=== PATIENT | female | born 1995 | race Asian ===

== ENCOUNTER 2016-09-07 19:07 | Emergency (ER) | payer BC, MEDICAID | END 2016-09-07 19:39 | disposition left against medical advice (07) | LOC: E/R 19:07 | DX: Z53.21 Procedure and treatment not carried out due to patient leaving prior to being seen by health care provider (principal) ==

== ENCOUNTER 2016-10-27 08:31 | Inpatient (IN) | payer OTHER ==
[~2016-10-27] VITALS: Ht 167.6 cm; Wt 69.0 kg
[2016-10-27] MEDS ORDERED: KETOROLAC 30 MG INJ IV STA (08:50)
[2016-10-27] MEDS ORDERED: ONDANSETRON 4 MG INJ IV STA (08:50)
[2016-10-27] MEDS ORDERED: SOD CHLORIDE 0.9% 1,000 ML IV STA (08:50)
[2016-10-27] MEDS ORDERED: morphine 4 MG/ML VIAL IV STA (08:50)
[2016-10-27 09:19] LABS: ALBUMIN 4.7 g/dl (3.3-4.9)
[2016-10-27 09:20] LABS: POTASSIUM 4.1 mmol/L (3.5-5.1)
[2016-10-27 09:22] LABS: ALBUMIN/GLOBULIN RATIO 1.56; BASOPHILS % 0.2 % (0.0-2.0); BILIRUBIN,INDIRECT 0.3 mg/dl (0-1.1); BILIRUBIN,TOTAL 0.3 mg/dl (0.2-1.3); CALCIUM 9.7 mg/dl (8.4-10.2); CREATININE 0.64 mg/dl (0.44-1.00); HEMATOCRIT 40.9 % (37.0-47.0); HEMOGLOBIN 14.4 g/dl (12.0-16.0); LYMPHOCYTES # 0.8 10^3/ul (0.8-2.9); LYMPHOCYTES % 7.8 % (15.0-51.0); MEAN CORPUSCULAR HGB CONC 35.1 g/dl (32.0-37.0); MEAN CORPUSCULAR VOLUME 91.3 fl (82.0-101.0); MEAN PLATELET VOLUME 8.3 fl (7.4-10.4); MONOCYTE # 0.2 10^3/ul (0.3-0.9); MONOCYTES % 1.7 % (0.0-11.0); NEUTROPHIL # 9.2 10^3/ul (1.6-7.5); NEUTROPHILS % 90.3 % (39.0-77.0); PLATELET COUNT 242 10^3/UL (140-440); RED BLOOD COUNT 4.48 10^6/ul (4.20-5.40); RED CELL DISTRIBUTION WIDTH 12.2 % (11.5-14.5); TOTAL PROTEIN 7.7 g/dl (6.1-8.1); UNCORRECTED WBC 10.2 10^3/ul (4.8-10.8); WHITE BLOOD COUNT 10.2 10^3/ul (4.8-10.8)
[2016-10-27 09:23] LABS: CONDITION 1; LH ANALYZER COMMENTS 1
--- NOTE | 2016-10-27 09:46 | RADRPT ---
PROCEDURE: US Abdomen. CLINICAL INDICATION: abdominal pain TECHNIQUE: Multiple real-time images were acquired of the patient's right upper quadrant abdomen a nd retroperitoneum utilizing a high resolution transducer. COMPARISON: None FINDINGS: The liver demonstrates normal echogenicity. The liver is normal in size and no focal solid lesions are seen. The liver measures 13.5 cm in length. The portal vein is patent with normal direction of f low. No intrahepatic biliary dilatation is seen. The gallbladder is moderately distended. Multiple calcified gallstones are identified within the ga llbladder. There is no pericholecystic fluid or gallbladder wall thickening. The common bile duct m easures 10 mm in maximal dimension. The visualized portions of the pancreas are unremarkable. The tail of the pancreas is not seen. No free fluid is identified. The right kidney is normal in size, and demonstrate normal echogenicity and cortical thickness. The right kidney measures 9.5 cm in long dimension. There is no evidence of hydronephrosis. There are no kidney stones. RPTAT: AA IMPRESSION: Cholelithiasis. Dilated CBD. .Walter Kulkarni MD, Date Time Electronically viewed and signed by .Walter Kulkarni MD, on 10/27/2016 09:46 .S/
--- NOTE | 2016-10-27 10:17 | RADRPT ---
PROCEDURE: Abdominal study CLINICAL INDICATION: Abdominal Pain. TECHNIQUE: Supine abdomen. COMPARISON: None FINDINGS: The bowel gas pattern is unremarkable with no evidence of obstruction. No abnormal calcifications overlie the kidneys or urinary tracts. There is moderate amount of fecal material in the right colon. IMPRESSION: 1. No acute abdominal process is identified. RPTAT: HH .Ramy Hernandes MD, MD Date Time Electronically viewed and signed by .Ramy Hernandes MD, MD on 10/27/2016 10:16 .G/
[2016-10-27] MEDS ORDERED: ACETAMINOPHEN 325 MG TAB PO PRN (11:00)
[2016-10-27] MEDS ORDERED: AMPICILLIN/SULB 3 GM/NS (PMX) 100 ML IVPB ONE (11:00)
[2016-10-27] MEDS ORDERED: HYDROmorphONE 1 MG/ML SYG IV STA (12:45)
[2016-10-27] MEDS: ONDANSETRON 4 MG INJ IV PRN ×2 (12:55→17:26)
--- NOTE | 2016-10-27 13:06 | ERA ---
ER Documentation Chief Complaint Date/Time DATE: 10/27/16 TIME: 13:05 Chief Complaint abd pain and upper back pain since 0300 today . feels constipated HPI Patient is a 21-year-old female who presents with abdominal pain and vomiting. She has had this for the past few hours. The pain is in the right upper quadrant and epigastric area. She denies diarrhea and her last bowel movement was 2 days ago. She denies fevers. She has had no treatment as of yet. ROS All systems reviewed and are negative except as per history of present illness. Allergies Allergies: Coded Allergies: No Known Allergy (Unverified , 10/27/16) PMhx/Soc Medical and Surgical Hx: pt denies Medical Hx, pt denies Surgical Hx Hx Alcohol Use: No Hx Substance Use: No Hx Tobacco Use: No FmHx Family History: No diabetes Physical Exam Vitals Vital Signs Date Time Temp Pulse Resp B/P Pulse Ox O2 Delivery O2 Flow Rate FiO2 10/27/16 08:35 98.5 71 20 132/72 97 Physical Exam Const: No acute distress Head: Atraumatic Eyes: Normal Conjunctiva ENT: Normal External Ears, Nose and Mouth. Neck: Full range of motion..~ No meningismus. Resp: Clear to auscultation bilaterally Cardio: Regular rate and rhythm, no murmurs Abd: Upper abdominal pain with palpation Skin: No petechiae or rashes Back: No midline or flank tenderness Ext: No cyanosis, or edema Neur: Awake and alert Psych: Normal Mood and Affect Result Diagram: 10/27/16 0900 10/27/16 0900 Results 24 hrs Laboratory Tests Test 10/27/16 09:00 Alanine Aminotransferase (ALT/SGPT) 91IU/L Albumin 4.7g/dl Albumin/Globulin Ratio 1.56 Alkaline Phosphatase 69IU/L Anion Gap 20 Aspartate Amino Transf (AST/SGOT) 106IU/L Basophils # 0.010^3/ul Basophils % 0.2% Blood Urea Nitrogen 6mg/dl Calcium Level 9.7mg/dl Carbon Dioxide Level 24mmol/L Chloride Level 105mmol/L Creatinine 0.64mg/dl Direct Bilirubin 0.00mg/dl Eosinophils # 0.010^3/ul Eosinophils % 0.0% Globulin 3.00g/dl Glucose Level 168mg/dl Hematocrit 40.9% Hemoglobin 14.4g/dl Indirect Bilirubin 0.3mg/dl Lipase 44011L/L Lymphocytes # 0.810^3/ul Lymphocytes % 7.8% Mean Corpuscular Hemoglobin 32.0pg Mean Corpuscular Hemoglobin Concent 35.1g/dl Mean Corpuscular Volume 91.3fl Mean Platelet Volume 8.3fl Monocytes # 0.210^3/ul Monocytes % 1.7% Neutrophils # 9.210^3/ul Neutrophils % 90.3% Nucleated Red Blood Cells # 0.010^3/ul Nucleated Red Blood Cells % 0.0/100WBC Platelet Count 67013^3/UL Potassium Level 4.1mmol/L Red Blood Count 4.4810^6/ul Red Cell Distribution Width 12.2% Sodium Level 145mmol/L Total Bilirubin 0.3mg/dl Total Protein 7.7g/dl White Blood Count 10.210^3/ul Current Medications Medications (Trade) Dose Ordered Sig/Elizabeth Route PRN Reason Start Time Stop Time Status Last Admin Dose Admin Sodium Chloride (NS) 1,000 ml @ 1,000 mls/hr Q1H STAT IV 10/27/16 08:50 10/27/16 09:58 DC 10/27/16 09:08 Morphine Sulfate (morphine) 4 mg ONCE STAT IV 10/27/16 08:50 10/27/16 08:52 DC 10/27/16 09:07 Ondansetron HCl (Zofran Inj) 4 mg ONCE STAT IV 10/27/16 08:50 10/27/16 08:52 DC 10/27/16 09:07 Ketorolac Tromethamine 30 mg 30 mg ONCE STAT IV 10/27/16 08:50 10/27/16 08:52 DC 10/27/16 09:48 Ampicillin Sodium/ Sulbactam Sodium (Unasyn 3gm/NS (Pmx)) 100 ml @ 100 mls/hr ONCE ONCE IVPB 10/27/16 11:00 10/27/16 11:59 DC 10/27/16 11:35 Ondansetron HCl (Zofran Inj) 4 mg BRIDGE ORDER PRN IV NAUSEA AND/OR VOMITING 10/27/16 11:00 10/28/16 10:59 10/27/16 12:55 Acetaminophen (Tylenol Tab) 650 mg ER BRIDGE PRN PO MILD PAIN/FEVER 10/27/16 11:00 10/28/16 10:59 Hydromorphone HCl (Dilaudid) 1 mg ONCE STAT IV 10/27/16 12:45 10/27/16 12:46 DC 10/27/16 12:55 Procedures/MDM Ultrasound shows gallstones with dilated common bile duct per radiology but no signs of cholecystitis. Abdominal x-ray negative per radiology. Patient is a 21-year-old female with abdominal pain who presents with elevated lipase of 17,000 consistent with pancreatitis. I believe this is likely choledocholithiasis given gallstones and a dilated common bile duct with the elevated lipase. AST and ALT were slightly elevated. The patient will be admitted to the care of Dr. Pompa as she has regal insurance. The patient will have consultation with Dr. Stevens and Dr. Barrera. I have called both doctors and I spoke with Dr. Stevens but I am awaiting a callback from Dr. Barrera at this time. The patient will be admitted to a medical surgical bed. The patient will be given Unasyn IV. Observation Note: Time: 4 hours Family Hx: Negative for diabetes Evaluation: Multiple exams showed improving symptoms and no evidence of clinical decompensation. Departure Diagnosis: Primary Impression: Choledocholithiasis Additional Impression: Pancreatitis Qualified Code: K85.10 - Acute biliary pancreatitis, unspecified complication status Condition: LUIS F Pimentel MD Oct 27, 2016 13:06
[2016-10-27 13:59] LABS: INR 1.28; PROTIME 16.1 Sec (12.2-14.2); PT RATIO 1.3
[2016-10-27 14:00] LABS: PARTIAL THROMBOPLASTIN TIME 27.9 Sec (25.0-35.0)
[2016-10-27] MEDS ORDERED: NACL 0.9% 3 ML SYG IV SCH (14:00)
[2016-10-27] MEDS ORDERED: OXYCODONE/ACETAMINOPHEN (5/325) TAB PO PRN ×2 (14:00)
[2016-10-27] MEDS ORDERED: DOCUSATE SODIUM 100 MG CAP PO PRN (14:00)
[2016-10-27] MEDS ORDERED: BISACODYL 10 MG SUPP PR PRN (14:00)
[2016-10-27] MEDS ORDERED: METOCLOPRAMIDE 10 MG INJ IV ONE (14:00)
[2016-10-27 14:01] LABS: CHOL/HDL RATIO 2.7 RATIO
[2016-10-27 14:45] VITALS: TEMP 98.6
--- NOTE | 2016-10-27 15:43 | RADRPT ---
PROCEDURE: MRI abdomen without contrast; MRCP CLINICAL INDICATION: abdominal pain TECHNIQUE: On the coronal T2-weighted images were obtained secondary to patient discomfort and vom iting during the examination which was terminated early. COMPARISON: Gallbladder ultrasound 10/27/2016 FINDINGS: Limited coronal only imaging of the abdomen demonstrates a dilated gallbladder with multiple layerin g gallstones along with dilatation of the cystic duct. There is mild gallbladder wall thickening pr esent with trace adjacent fluid. There is mild intrahepatic biliary ductal dilatation with a modera tely dilated appearance of the common duct that measures up to 13 mm in diameter. Of the distal com mon duct there is a low signal intensity filling defect measuring 4 mm consistent with a stone and t his causes proximal obstructive changes. No pancreatic ductal dilatation is present. There is possible mild peripancreatic fluid signal not fully appreciable on non fat-saturated imagin g. There is a grossly uniform appearance of the hepatic parenchyma and there is a flow void visible wit hin the portal vein. There is a grossly normal appearance the adrenal glands, kidneys and spleen. There is no gross evidence of bowel obstruction. Evaluation for enlarged lymph nodes is limited wit h no gross adenopathy that is visible. The aorta and osseous structures demonstrate no gross acute abnormality. IMPRESSION: There is mild intrahepatic and moderate extrahepatic biliary ductal dilatation secondary to a visibl e obstructing stone at the distal common duct measuring 4 mm consistent with choledocholithiasis. There is cholelithiasis with findings are suggestive for acute cholecystitis. There are possible inflammatory changes around the pancreas which can be correlated with amylase and lipase levels to exclude the presence of pancreatitis. Study is limited as only T2-weighted coronal images were obtained due to patient discomfort an early termination of the study. RPTAT: AA .Obie Medrano MD, MD Date Time Electronically viewed and signed by .Obie Medrano MD, MD on 10/27/2016 15:43 .J/
--- NOTE | 2016-10-27 15:56 | HP ---
DATE OF ADMISSION: 10/27/2016 CHIEF COMPLAINT ON ADMISSION: Abdominal pain. HISTORY OF PRESENT ILLNESS: This is a 21-year-old female with no significant past medical history w haroldo presented to the emergency department with severe epigastric pain radiating to her back that star chitra at 3:00 a.m. today. Patient reports that the pain has been worsening. She did have an episode of nausea and vomiting at 5:00 a.m. this morning and subsequently kept having multiple episodes. Juan Pablo ventura came to the emergency department for evaluation. She was diagnosed with acute pancreatitis with a lipase of 17,540. Her gallbladder ultrasound did show cholelithiasis and dilated common bile duct. Both general surgery and gastroenterology has been consulted, and an MRCP is pending at this point . The patient is n.p.o. and being admitted to a medical/surgical bed. ALLERGIES: NO KNOWN ALLERGIES. PAST MEDICAL HISTORY: None. PAST SURGICAL HISTORY: None. OUTPATIENT MEDICATIONS: Ibuprofen as needed for pain. REVIEW OF SYSTEMS: As per HPI. The patient denies any genitourinary or cardiopulmonary symptoms. Only reports gastrointestinal symptoms. SOCIAL HISTORY: The patient does not drink. She quit all drinking approximately 2 years ago. She only smokes marijuana occasionally. PHYSICAL EXAMINATION: VITAL SIGNS: Temperature is 98.5, heart rate of 71, respiratory rate of 20, blood pressure 132/72. She is satting 97% on room air. GENERAL: She is alert and oriented x4. She is in no acute distress currently. She just had a dose of pain medication. HEENT: Pupils are equally round and reactive to light. Extraocular muscles are intact. Anicteric sclerae. NECK: No JVD. No thyromegaly noted. HEART: Regular rate and rhythm. No murmur, rubs, or gallops. LUNGS: Clear to auscultation bilaterally. ABDOMEN: She does have epigastric pain on palpation. Bowel sounds are present. Abdomen is soft an d nondistended. EXTREMITIES: No edema, clubbing, or cyanosis. NEUROLOGIC: Grossly intact. LABORATORY DATA: White blood cell count is 10.2, hemoglobin 14.4, hematocrit 40.9, platelet count o f 242. Chemistry with a sodium of 145, potassium 4.1, chloride 105, bicarbonate 24, BUN 6, creatini ne 0.64, glucose of 168, calcium 9.7, total bilirubin 0.3, AST 106, ALT 91, alkaline phosphatase 69, total protein 7.7, albumin 4.7, lipase is 17,540. INR is 1.28. PT 16.1, PTT 27.9. RADIOLOGICAL DATA: 1. Gallbladder ultrasound does show cholelithiasis and dilated common bile duct measuring 10 mm. 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 2. Abdominal x-ray is unremarkable. ASSESSMENT AND PLAN: This is a 21-year-old female with: 1. Acute pancreatitis, likely gallstone pancreatitis based on gallbladder ultrasound. MRCP is pend ing. The patient is kept n.p.o. Pain medication, antiemetics on board. IV fluids to be continued. Dr. Dr. Johns from gastroenterology and Dr. Stevens from General Surgery has been consulted. Since there are signs of common bile duct dilatation, the patient will be kept on antibiotics for now unti l MRCP results, and will repeat her pancreatic enzymes tomorrow morning. 2. Prophylaxis. Protonix for GI prophylaxis. SCDs to lower extremity for DVT prophylaxis. DISPOSITION: Patient is admitted to a medical/surgical bed with gastroenterology and general surger y consults pending. Dictated By: ARI FORTUNE/NTS Conf#: [id number] DID#: [id number]
[2016-10-27 16:44] VITALS: BP 106/52; RESP 20
[2016-10-27] MEDS: PIPER-TAZO 3.375 GM IV (PMX) 100 ML IVPB SCH ×2 (16:47→21:15)
[2016-10-27] MEDS: SOD CHLORIDE 0.9% 1,000 ML IV SCH ×2 (16:47→22:00)
[2016-10-27] MEDS: morphine 2 MG INJ IV PRN ×2 (17:26→22:54)
--- NOTE | 2016-10-27 18:10 | CONS ---
Date/Time of Note Date/Time of Note DATE: 10/27/16 TIME: 18:06 Assessment/Plan Assessment/Plan Additional Assessment/Plan Abdominal pain/nausea/vomiting * Evaluate for choledocholithiasis * N.p.o. * IVF hydration * Pain and nausea control * ERCP if clinically indicated * MRCP 10-27-16: There is mild intrahepatic and moderate extrahepatic biliary ductal dilatation secondary to a visible obstructing stone at the distal common duct measuring 4 mm consistent with choledocholithiasis. There is cholelithiasis with findings are suggestive for acute cholecystitis. There are possible inflammatory changes around the pancreas which can be correlated with amylase and lipase levels to exclude the presence of pancreatitis. * Trend labs Further recommendations depend on clinical course Patient seen in collaboration with Dr. Barrera Consultation Date/Type/Reason Admit Date/Time Oct 27, 2016 at 10:42 Reason for Consultation Abdominal pain Per HPI Past Medical History Medical History: no pertinent history Past Surgical History Past Surgical Hx: no surgical history Social History Alcohol Use: occasionally Smoking Status: Never smoker Exam/Review of Systems Vital Signs Vitals Vital Signs Date Time Temp Pulse Resp B/P Pulse Ox O2 Delivery O2 Flow Rate FiO2 10/27/16 16:44 97.7 57 20 106/52 98 Exam Constitutional: alert, oriented, well developed Psych: nl mood/affect Head: normocephalic Eyes: EOMI, nl conjunctiva, nl lids, nl sclera ENMT: nl external ears & nose, nl lips & teeth, nl nasal mucosa & septum Neck: non-tender Respiratory: normal air movement Cardiovascular: regular rate and rhythm Gastrointestinal: soft, tender (Epigastric) Musculoskeletal: nl extremities to inspection Neurological: CTC OPERATOR II-XII intact Results Result Diagram: 10/27/16 0900 10/27/16 0900 Results 24 hrs Laboratory Tests Test 10/27/16 09:00 Activated Partial Thromboplast Time 27.9 Alanine Aminotransferase (ALT/SGPT) 91 H Albumin 4.7 Albumin/Globulin Ratio 1.56 Alkaline Phosphatase 69 Anion Gap 20 H Aspartate Amino Transf (AST/SGOT) 106 H Basophils # 0.0 Basophils % 0.2 Blood Urea Nitrogen 6 L Calcium Level 9.7 Carbon Dioxide Level 24 Chloride Level 105 Cholesterol Level 144 Cholesterol/HDL Ratio 2.7 Creatinine 0.64 Direct Bilirubin 0.00 Eosinophils # 0.0 Eosinophils % 0.0 Globulin 3.00 Glucose Level 168 HDL Cholesterol 53 Hematocrit 40.9 Hemoglobin 14.4 INR International Normalized Ratio 1.28 Indirect Bilirubin 0.3 LDL Cholesterol, Calculated 81 Lipase 53087 H Lymphocytes # 0.8 Lymphocytes % 7.8 L Mean Corpuscular Hemoglobin 32.0 Mean Corpuscular Hemoglobin Concent 35.1 Mean Corpuscular Volume 91.3 Mean Platelet Volume 8.3 Monocytes # 0.2 L Monocytes % 1.7 Neutrophils # 9.2 H Neutrophils % 90.3 H Nucleated Red Blood Cells # 0.0 Nucleated Red Blood Cells % 0.0 Platelet Count 242 Potassium Level 4.1 Prothrombin Time 16.1 H Prothrombin Time Ratio 1.3 Red Blood Count 4.48 Red Cell Distribution Width 12.2 Sodium Level 145 H Total Bilirubin 0.3 Total Protein 7.7 Triglycerides Level 51 White Blood Count 10.2 Medications Medications Current Medications Ondansetron HCl (Zofran Inj) 4 mg Q6H PRN IV NAUSEA AND/OR VOMITING Last administered on 10/27/16 17:26; Admin Dose 4 MG; Start 10/27/16 at 14:00 Oxycodone/ Acetaminophen (Percocet (5/ 325)) 1 tab Q6H PRN PO PAIN LEVEL 4-6; Start 10/27/16 at 14:00 Oxycodone/ Acetaminophen (Percocet (5/ 325)) 2 tab Q6H PRN PO PAIN LEVEL 7-10; Start 10/27/16 at 14:00 Morphine Sulfate (morphine) 2 mg Q4H PRN IV PAIN LEVEL 7-10 Last administered on 10/27/16 17:26; Admin Dose 2 MG; Start 10/27/16 at 14:00 Docusate Sodium (Colace) 100 mg Q12H PRN PO CONSTIPATION; Start 10/27/16 at 14: 00 Magnesium Hydroxide (Milk Of Mag) 30 ml DAILY PRN PO CONSTIPATION; Start at 14:00 Bisacodyl (Dulcolax Supp) 10 mg DAILY PRN LA CONSTIPATION; Start 10/27/16 at 14 :00 Pantoprazole 40 mg 40 mg DAILY@06 IV ; Start 10/28/16 at 06:00 Sodium Chloride 1,000 ml @ 125 mls/hr Q8H IV Last administered on 10/27/16 16 :47; Admin Dose 125 MLS/HR; Start 10/27/16 at 14:00 Piperacillin Sod/ Tazobactam Sod (Zosyn 3.375gm/ 100 ml (Pmx)) 100 ml @ 200 mls /hr Q8 IVPB Last administered on 10/27/16t 16:47; Admin Dose 200 MLS/HR; Start 10/27/16 at 14:00 JUN BEAVER Oct 27, 2016 18:10
[2016-10-27 19:00] VITALS: BP 109/55; RESP 19
[2016-10-27 19:24] LABS: ADD UMIC YES; URINE BILIRUBIN (Dip) 1+ (NEGATIVE); URINE BLOOD (Dip) NEGATIVE (NEGATIVE); URINE COLOR YELLOW (YELLOW); URINE GLUCOSE (Dip) NEGATIVE (NEGATIVE); URINE KETONES (Dip) 15 (NEGATIVE); URINE LEUKOCYTE ESTERASE (Dip) NEGATIVE (NEGATIVE); URINE NITRITE (Dip) NEGATIVE (NEGATIVE); URINE TOTAL PROTEIN (Dip) 1+ (NEGATIVE); URINE UROBILINOGEN (Dip) 0.2 E.U./dL (0.1-1.0)
--- NOTE | 2016-10-27 19:25 | CONS ---
DATE OF ADMISSION: 10/27/2016 DATE OF CONSULTATION: TYPE OF CONSULTATION: Surgical. REASON FOR CONSULTATION: Cholecystitis and choledocholithiasis. HISTORY OF PRESENT ILLNESS: The patient is a 21-year-old female who has no familial history of gall bladder disease or previous pregnancies. She did not know that she has gallstones until this admiss ion. She was admitted with a 1-day history of severe midepigastric and right upper quadrant abdomin al pain. Abdominal ultrasound showed gallstones. MRI showed gallstones as well as a solitary stone in the distal common duct. She is admitted with diagnosis of acute cholecystitis and choledocholit hiasis, and surgical and GI consultations have been sought. She has had no fevers, chills or jaundi ce. PAST MEDICAL HISTORY: No previous hospitalizations or illnesses. OUTPATIENT MEDICATIONS: None. ALLERGIES: NONE. REVIEW OF SYSTEMS: HEAD, EARS, EYES, NOSE, THROAT: Within normal limits. PULMONARY: No history of pneumonia, asthma or shortness of breath. CARDIAC: No history of chest pain or arrhythmia. ABDOMEN: As in the HPI. EXTREMITIES: Unremarkable. PHYSICAL EXAMINATION: GENERAL: The patient is a healthy and fit-appearing 21-year-old female in no acute distress. HEAD, EARS, EYES, NOSE AND THROAT: Within normal limits. Sclerae nonicteric. LUNGS: Clear. HEART: Regular rhythm. ABDOMEN: Tender in the right upper quadrant with slight guarding but no rebound. EXTREMITIES: Unremarkable. LABORATORY DATA: The patient's hematocrit is 40.9 with a white count of 10,000. BUN, glucose, elec trolytes are unremarkable. Bilirubin is 0.3 with an alkaline phosphatase of 69. AST is 106, ALT 91 , lipase is 17,540. IMPRESSION: 1. Biliary pancreatitis. 2. Cholecystitis. 3. Choledocholithiasis. PLAN: Medical management, GI consultation for ERCP, laparoscopic cholecystectomy when common duct i s cleared and pancreatitis resolves. I will follow with you. Dictated By: HORACIO SAUCEDO/BECCA Conf#: [id number] DID#: [id number]
[2016-10-27 19:30] LABS: ICTOTEST NEGATIVE (NEGATIVE)
[2016-10-27 19:54] LABS: BACTERIA,URINE FEW; URINE RBCS 0-2 /HPF (0)
[2016-10-28] MEDS: SOD CHLORIDE 0.9% 1,000 ML IV SCH ×2 (02:11→16:06)
[2016-10-28] MEDS: ONDANSETRON 4 MG INJ IV PRN (02:11)
[2016-10-28] MEDS: PANTOPRAZOLE 40 MG INJ IV SCH (05:10)
[2016-10-28] MEDS: PIPER-TAZO 3.375 GM IV (PMX) 100 ML IVPB SCH ×3 (05:10→21:35)
[2016-10-28] MEDS: morphine 2 MG INJ IV PRN ×4 (05:11→23:12)
[2016-10-28 05:33] VITALS: Ht 167.6 cm; Wt 69.0 kg
[2016-10-28 05:43] LABS: ALBUMIN 3.4 g/dl (3.3-4.9)
[2016-10-28 05:44] LABS: POTASSIUM 3.7 mmol/L (3.5-5.1)
[2016-10-28 05:45] LABS: BASOPHILS % 0.3 % (0.0-2.0); EOSINOPHILS % 0.3 % (0.0-7.0); HEMATOCRIT 33.3 % (37.0-47.0); HEMOGLOBIN 11.5 g/dl (12.0-16.0); LYMPHOCYTES # 1.7 10^3/ul (0.8-2.9); LYMPHOCYTES % 22.4 % (15.0-51.0); MEAN CORPUSCULAR HEMOGLOBIN 31.3 pg (29.0-33.0); MEAN CORPUSCULAR HGB CONC 34.4 g/dl (32.0-37.0); MEAN CORPUSCULAR VOLUME 90.9 fl (82.0-101.0); MEAN PLATELET VOLUME 8.7 fl (7.4-10.4); MONOCYTE # 0.4 10^3/ul (0.3-0.9); MONOCYTES % 5.7 % (0.0-11.0); NEUTROPHIL # 5.5 10^3/ul (1.6-7.5); NEUTROPHILS % 71.3 % (39.0-77.0); PLATELET COUNT 192 10^3/UL (140-440); RED BLOOD COUNT 3.66 10^6/ul (4.20-5.40); UNCORRECTED WBC 7.7 10^3/ul (4.8-10.8); WHITE BLOOD COUNT 7.7 10^3/ul (4.8-10.8)
[2016-10-28 05:46] LABS: ALBUMIN/GLOBULIN RATIO 1.36; BILIRUBIN,INDIRECT 0.3 mg/dl (0-1.1); BILIRUBIN,TOTAL 0.3 mg/dl (0.2-1.3); CREATININE 0.65 mg/dl (0.44-1.00); TOTAL PROTEIN 5.9 g/dl (6.1-8.1)
[2016-10-28 05:47] LABS: CALCIUM 8.6 mg/dl (8.4-10.2)
[2016-10-28 06:31] LABS: CONDITION 1
[2016-10-28] MEDS ORDERED: VITAMIN A & D 5 GM OINT PACKET TOP ONE (07:40)
[2016-10-28 08:39] VITALS: BP 107/63; RESP 18
--- NOTE | 2016-10-28 10:36 | PN ---
DATE: 10/28/2016 SUBJECTIVE: The patient is symptomatically improved. Her white blood cell count is normal. OBJECTIVE: ABDOMEN: Shows mild tenderness in the epigastrium. LABORATORY DATA: Lipase today is down to 1356. PLAN: Timing of the ERCP per GI, completion laparoscopic cholecystectomy after common duct is clear ed and pancreatitis resolved. Dictated By: HORACIO SAUCEDO/BECCA Conf#: [id number] DID#: [id number]
--- NOTE | 2016-10-28 10:42 | PN ---
Date/Time of Note Date/Time of Note DATE: 10/28/16 TIME: 10:36 Assessment/Plan VTE Prophylaxis VTE Prophylaxis Intervention: SCD's Lines/Catheters IV Catheter Type (from Nrs): Peripheral IV Assessment/Plan Assessment/Plan 21-year-old female: 1. Acute Gallstone pancreatitis, also with choledocholithiasis and acute cholecystitis. Pancreatic enzymes trending down. Continue IVF, IV abx and NPO ERCP planned for AM Cholecystectomy to follow Monitor Pancreatic enzymes Prophylaxis. Protonix for GI prophylaxis. SCDs to lower extremity for DVT prophylaxis. DISPOSITION: ERCP in AM, Dr Barrera and Dr Stevens following. Subjective 24 Hr Interval Summary Free Text/Dictation Patient doing OK, on IVF, NPO and pain controlled MRCP confirming choledocholithiasis and acute cholecystis in addition of acute pancreatitis ERCP planned for tomorrow with dr Barrera and cholecystectomy to follow Exam/Review of Systems Vital Signs Vitals Vital Signs Date Time Temp Pulse Resp B/P Pulse Ox O2 Delivery O2 Flow Rate FiO2 10/28/16 08:39 98.0 60 18 107/63 99 Intake and Output 10/27/16 10/27/16 10/28/16 15:00 23:00 07:00 Intake Total 1000 ml 100 ml 1500 ml Output Total 1050 ml Balance 1000 ml 100 ml 450 ml Exam Constitutional: alert, oriented, well developed Respiratory: clear to auscultation, normal air movement Cardiovascular: nl pulses, regular rate and rhythm Gastrointestinal: soft, tender (epigastric ) Musculoskeletal: nl extremities to inspection, nl gait and stance Extremities: normal pulses, other (no edema, clubbign or cyanosis ) Neurological: CHIPPER MACHINE OPERATOR II-XII intact, nl mental status, nl speech, nl strength Results Result Diagram: 10/28/1644910/28/16 045 Results 24 hrs Laboratory Tests Test 10/27/16 18:30 10/28/16 04:50 10/28/16 09:21 Lipase 9129 H 1356 H Alanine Aminotransferase (ALT/SGPT) 204 H Albumin 3.4 # Albumin/Globulin Ratio 1.36 Alkaline Phosphatase 62 Amylase Level 462 H Anion Gap 16 Aspartate Amino Transf (AST/SGOT) 130 H Basophils # 0.0 Basophils % 0.3 Blood Urea Nitrogen 7 Calcium Level 8.6 Carbon Dioxide Level 23 Chloride Level 107 Creatinine 0.65 Direct Bilirubin 0.00 Eosinophils # 0.0 Eosinophils % 0.3 Globulin 2.50 Glucose Level 96 # Hematocrit 33.3 L Hemoglobin 11.5 #L Indirect Bilirubin 0.3 Lymphocytes # 1.7 Lymphocytes % 22.4 Magnesium Level 2.0 Mean Corpuscular Hemoglobin 31.3 Mean Corpuscular Hemoglobin Concent 34.4 Mean Corpuscular Volume 90.9 Mean Platelet Volume 8.7 Monocytes # 0.4 Monocytes % 5.7 Neutrophils # 5.5 Neutrophils % 71.3 Nucleated Red Blood Cells # 0.0 Nucleated Red Blood Cells % 0.0 Platelet Count 192 # Potassium Level 3.7 Red Blood Count 3.66 L Red Cell Distribution Width 12.0 Sodium Level 142 Total Bilirubin 0.3 Total Protein 5.9 #L White Blood Count 7.7 # Lab Scanned Report LAB Medications Medications Current Medications Ondansetron HCl (Zofran Inj) 4 mg Q6H PRN IV NAUSEA AND/OR VOMITING Last administered on 10/27/16 17:26; Admin Dose 4 MG; Start 10/27/16 at 14:00 Oxycodone/ Acetaminophen (Percocet (5/ 325)) 1 tab Q6H PRN PO PAIN LEVEL 4-6; Start 10/27/16 at 14:00 Oxycodone/ Acetaminophen (Percocet (5/ 325)) 2 tab Q6H PRN PO PAIN LEVEL 7-10 Last administered on 10/27/16 19:42; Admin Dose 2 TAB; Start 10/27/16 at 14:00 Morphine Sulfate (morphine) 2 mg Q4H PRN IV PAIN LEVEL 7-10 Last administered on 10/28/16 05:11; Admin Dose 2 MG; Start 10/27/16 at 14:00 Docusate Sodium (Colace) 100 mg Q12H PRN PO CONSTIPATION; Start 10/27/16 at 14: 00 Magnesium Hydroxide (Milk Of Mag) 30 ml DAILY PRN PO CONSTIPATION; Start at 14:00 Bisacodyl (Dulcolax Supp) 10 mg DAILY PRN LA CONSTIPATION; Start 10/27/16 at 14 :00 Pantoprazole 40 mg 40 mg DAILY@06 IV Last administered on 10/28/16 05:10; Admin Dose 40 MG; Start 10/28/16 at 06:00 Sodium Chloride 1,000 ml @ 125 mls/hr Q8H IV Last administered on 10/28/16 02 :11; Admin Dose 125 MLS/HR; Start 10/27/16 at 14:00 Piperacillin Sod/ Tazobactam Sod (Zosyn 3.375gm/ 100 ml (Pmx)) 100 ml @ 200 mls /hr Q8 IVPB Last administered on 10/28/16 05:10; Admin Dose 200 MLS/HR; Start 10/27/16 at 14:00 ARI RAYO Oct 28, 2016 10:42
--- NOTE | 2016-10-28 14:34 | CONS ---
Date/Time of Note Date/Time of Note DATE: 10/28/16 TIME: 14:29 Assessment/Plan Assessment/Plan Additional Assessment/Plan Abdominal pain/nausea/vomiting * Evaluate for choledocholithiasis * N.p.o. * IVF hydration * Pain and nausea control * ERCP tomorrow with Dr. Barrera * MRCP 10-27-16: There is mild intrahepatic and moderate extrahepatic biliary ductal dilatation secondary to a visible obstructing stone at the distal common duct measuring 4 mm consistent with choledocholithiasis. There is cholelithiasis with findings are suggestive for acute cholecystitis. There are possible inflammatory changes around the pancreas which can be correlated with amylase and lipase levels to exclude the presence of pancreatitis. * Trend labs Further recommendations depend on clinical course Patient seen in collaboration with Dr. Barrera Consultation Date/Type/Reason Admit Date/Time Oct 27, 2016 at 10:42 Initial Consult Date Type of Consultation: GI Reason for Consultation Abdominal pain 24 HR Interval Summary Free Text/Dictation Reports less abdominal pain ERCP planned for tomorrow Exam/Review of Systems Vital Signs Vitals Vital Signs Date Time Temp Pulse Resp B/P Pulse Ox O2 Delivery O2 Flow Rate FiO2 10/28/16 08:39 98.0 60 18 107/63 99 Intake and Output 10/27/16 10/27/16 10/28/16 15:00 23:00 07:00 Intake Total 1000 ml 100 ml 1500 ml Output Total 1050 ml Balance 1000 ml 100 ml 450 ml Exam Constitutional: alert, oriented, well developed Psych: nl mood/affect Head: normocephalic Eyes: EOMI, nl conjunctiva, nl lids, nl sclera ENMT: nl external ears & nose, nl lips & teeth, nl nasal mucosa & septum Neck: non-tender Respiratory: normal air movement Cardiovascular: regular rate and rhythm Gastrointestinal: soft, tender (Epigastric) Musculoskeletal: nl extremities to inspection Neurological: GRADE TAMPER II-XII intact Results Result Diagram: 10/28/16 04510/28/16 045 Results 24 hrs Laboratory Tests Test 10/27/16 18:30 10/28/16 04:50 10/28/16 09:21 Lipase 9129 H 1356 H Alanine Aminotransferase (ALT/SGPT) 204 H Albumin 3.4 # Albumin/Globulin Ratio 1.36 Alkaline Phosphatase 62 Amylase Level 462 H Anion Gap 16 Aspartate Amino Transf (AST/SGOT) 130 H Basophils # 0.0 Basophils % 0.3 Blood Urea Nitrogen 7 Calcium Level 8.6 Carbon Dioxide Level 23 Chloride Level 107 Creatinine 0.65 Direct Bilirubin 0.00 Eosinophils # 0.0 Eosinophils % 0.3 Globulin 2.50 Glucose Level 96 # Hematocrit 33.3 L Hemoglobin 11.5 #L Indirect Bilirubin 0.3 Lymphocytes # 1.7 Lymphocytes % 22.4 Magnesium Level 2.0 Mean Corpuscular Hemoglobin 31.3 Mean Corpuscular Hemoglobin Concent 34.4 Mean Corpuscular Volume 90.9 Mean Platelet Volume 8.7 Monocytes # 0.4 Monocytes % 5.7 Neutrophils # 5.5 Neutrophils % 71.3 Nucleated Red Blood Cells # 0.0 Nucleated Red Blood Cells % 0.0 Platelet Count 192 # Potassium Level 3.7 Red Blood Count 3.66 L Red Cell Distribution Width 12.0 Sodium Level 142 Total Bilirubin 0.3 Total Protein 5.9 #L White Blood Count 7.7 # Lab Scanned Report LAB Medications Medications Current Medications Ondansetron HCl (Zofran Inj) 4 mg Q6H PRN IV NAUSEA AND/OR VOMITING Last administered on 10/27/16 17:26; Admin Dose 4 MG; Start 10/27/16 at 14:00 Oxycodone/ Acetaminophen (Percocet (5/ 325)) 1 tab Q6H PRN PO PAIN LEVEL 4-6; Start 10/27/16 at 14:00 Oxycodone/ Acetaminophen (Percocet (5/ 325)) 2 tab Q6H PRN PO PAIN LEVEL 7-10 Last administered on 10/27/16 19:42; Admin Dose 2 TAB; Start 10/27/16 at 14:00 Morphine Sulfate (morphine) 2 mg Q4H PRN IV PAIN LEVEL 7-10 Last administered on 10/28/16 10:39; Admin Dose 2 MG; Start 10/27/16 at 14:00 Docusate Sodium (Colace) 100 mg Q12H PRN PO CONSTIPATION; Start 10/27/16 at 14: 00 Magnesium Hydroxide (Milk Of Mag) 30 ml DAILY PRN PO CONSTIPATION; Start at 14:00 Bisacodyl (Dulcolax Supp) 10 mg DAILY PRN [place] CONSTIPATION; Start 10/27/16 at 14 :00 Pantoprazole 40 mg 40 mg DAILY@06 IV Last administered on 10/28/16 05:10; Admin Dose 40 MG; Start 10/28/16 at 06:00 Sodium Chloride 1,000 ml @ 125 mls/hr Q8H IV Last administered on 10/28/16 02 :11; Admin Dose 125 MLS/HR; Start 10/27/16 at 14:00 Piperacillin Sod/ Tazobactam Sod (Zosyn 3.375gm/ 100 ml (Pmx)) 100 ml @ 200 mls /hr Q8 IVPB Last administered on 10/28/16 13:58; Admin Dose 200 MLS/HR; Start 10/27/16 at 14:00 Indomethacin (Indocin Supp) 100 mg ONCE ONCE SD ; Start 10/29/16 at 12:00; Stop 10/29/16 at 12:01 JUN BEAVER Oct 28, 2016 14:34
[2016-10-28 19:00] VITALS: BP 109/64; RESP 18
[2016-10-29] VITALS (12 sets, daily range): BP systolic 100–132; BP diastolic 56–76; PULSE 56–90; RESP 12–22
[2016-10-29] MEDS: SOD CHLORIDE 0.9% 1,000 ML IV SCH ×4 (00:11→22:24)
[2016-10-29] MEDS: PANTOPRAZOLE 40 MG INJ IV SCH (05:14)
[2016-10-29] MEDS: PIPER-TAZO 3.375 GM IV (PMX) 100 ML IVPB SCH ×3 (05:14→22:24)
[2016-10-29 06:03] LABS: ADD SCAN DIFF NO
[2016-10-29 06:06] LABS: MAGNESIUM 1.9 mg/dl (1.7-2.5); PHOSPHORUS 3.8 mg/dl (2.5-4.9)
[2016-10-29 06:16] LABS: ALBUMIN 3.1 g/dl (3.3-4.9)
[2016-10-29 06:19] LABS: ALBUMIN/GLOBULIN RATIO 1.4; BILIRUBIN,INDIRECT 0.2 mg/dl (0-1.1); BILIRUBIN,TOTAL 0.2 mg/dl (0.2-1.3); CALCIUM 8.5 mg/dl (8.4-10.2); CREATININE 0.63 mg/dl (0.44-1.00); TOTAL PROTEIN 5.3 g/dl (6.1-8.1)
[2016-10-29 06:42] LABS: AMYLASE 100 U/L (11-123)
[2016-10-29 06:52] LABS: BASOPHILS % 0.2 % (0.0-2.0); EOSINOPHILS # 0.1 10^3/ul (0.0-0.5); HEMATOCRIT 32.3 % (37.0-47.0); LYMPHOCYTES # 2.5 10^3/ul (0.8-2.9); LYMPHOCYTES % 49.5 % (15.0-51.0); MEAN CORPUSCULAR HEMOGLOBIN 31.6 pg (29.0-33.0); MEAN CORPUSCULAR HGB CONC 34.1 g/dl (32.0-37.0); MEAN CORPUSCULAR VOLUME 92.8 fl (82.0-101.0); MEAN PLATELET VOLUME 10.8 fl (7.4-10.4); MONOCYTE # 0.4 10^3/ul (0.3-0.9); NEUTROPHIL # 2.2 10^3/ul (1.6-7.5); NEUTROPHILS % 42.1 % (39.0-77.0); PLATELET COUNT 181 10^3/UL (140-415); RED BLOOD COUNT 3.48 10^6/ul (4.20-5.40); RED CELL DISTRIBUTION WIDTH 11.8 % (11.5-14.5); WHITE BLOOD COUNT 5.1 10^3/ul (4.8-10.8)
[2016-10-29] MEDS ORDERED: LIDOCAINE 2% (SDV) 5 ML INJ ONE (07:00)
[2016-10-29] MEDS: morphine 2 MG INJ IV PRN (08:56)
--- NOTE | 2016-10-29 11:31 | PN ---
Date/Time of Note Date/Time of Note DATE: 10/29/16 TIME: 11:25 Assessment/Plan VTE Prophylaxis VTE Prophylaxis Intervention: SCD's Lines/Catheters IV Catheter Type (from Nrsg): Peripheral IV Assessment/Plan Assessment/Plan 21-year-old female: 1. Acute Gallstone pancreatitis, also with choledocholithiasis and acute cholecystitis. Pancreatic enzymes back down to normal. Continue IVF, IV abx and NPO, ERCP today Cholecystectomy to follow Pre op EKG and CXR ordered Prophylaxis. Protonix for GI prophylaxis. SCDs to lower extremity for DVT prophylaxis. DISPOSITION: ERCP today, Dr Barrera and Dr Stevens following. Subjective 24 Hr Interval Summary Free Text/Dictation Patient remains stable and NPO ERCP planned today Per Patient family, they is a history of at least 2 family members, unclear if distant or close that had reaction to anesthesia .. EKG pending pre op Exam/Review of Systems Vital Signs Vitals Vital Signs Date Time Temp Pulse Resp B/P Pulse Ox O2 Delivery O2 Flow Rate FiO2 10/29/16 08:16 98.0 71 16 105/56 98 Intake and Output 10/28/16 10/28/16 10/29/16 15:00 23:00 07:00 Intake Total 100 ml 1350 ml 725 ml Balance 100 ml 1350 ml 725 ml Exam Constitutional: alert, oriented, well developed Respiratory: clear to auscultation, normal air movement Cardiovascular: nl pulses, regular rate and rhythm Gastrointestinal: non-tender, soft Musculoskeletal: nl extremities to inspection Extremities: normal pulses, other (no edema, clubbing or cyanosis ) Neurological: BUTTERMAKER HELPER II-XII intact, nl mental status, nl speech, nl strength Results Result Diagram: 10/29/160 10/29/160 Results 24 hrs Laboratory Tests Test 10/29/16 04:40 Alanine Aminotransferase (ALT/SGPT) 131 H Albumin 3.1 L Albumin/Globulin Ratio 1.40 Alkaline Phosphatase 52 Amylase Level 100 # Anion Gap 14 Aspartate Amino Transf (AST/SGOT) 41 Basophils # 0.0 Basophils % 0.2 Blood Urea Nitrogen 5 L Calcium Level 8.5 Carbon Dioxide Level 24 Chloride Level 109 Creatinine 0.63 Direct Bilirubin 0.00 Eosinophils # 0.1 Eosinophils % 1.0 Globulin 2.20 Glucose Level 79 Hematocrit 32.3 L Hemoglobin 11.0 L Indirect Bilirubin 0.2 Lipase 201 Lymphocytes # 2.5 Lymphocytes % 49.5 Magnesium Level 1.9 Mean Corpuscular Hemoglobin 31.6 Mean Corpuscular Hemoglobin Concent 34.1 Mean Corpuscular Volume 92.8 Mean Platelet Volume 10.8 #H Monocytes # 0.4 Monocytes % 7.0 Neutrophils # 2.2 Neutrophils % 42.1 Nucleated Red Blood Cells # 0.0 Nucleated Red Blood Cells % 0.0 Phosphorus Level 3.8 Platelet Count 181 Potassium Level 4.0 Red Blood Count 3.48 L Red Cell Distribution Width 11.8 Sodium Level 143 Total Bilirubin 0.2 Total Protein 5.3 L White Blood Count 5.1 # Medications Medications Current Medications Ondansetron HCl (Zofran Inj) 4 mg Q6H PRN IV NAUSEA AND/OR VOMITING Last administered on 10/27/16 17:26; Admin Dose 4 MG; Start 10/27/16 at 14:00 Oxycodone/ Acetaminophen (Percocet (5/ 325)) 1 tab Q6H PRN PO PAIN LEVEL 4-6; Start 10/27/16 at 14:00 Oxycodone/ Acetaminophen (Percocet (5/ 325)) 2 tab Q6H PRN PO PAIN LEVEL 7-10 Last administered on 10/27/16 19:42; Admin Dose 2 TAB; Start 10/27/16 at 14:00 Morphine Sulfate (morphine) 2 mg Q4H PRN IV PAIN LEVEL 7-10 Last administered on 10/29/16 08:56; Admin Dose 2 MG; Start 10/27/16 at 14:00 Docusate Sodium (Colace) 100 mg Q12H PRN PO CONSTIPATION; Start 10/27/16 at 14: 00 Magnesium Hydroxide (Milk Of Mag) 30 ml DAILY PRN PO CONSTIPATION; Start at 14:00 Bisacodyl (Dulcolax Supp) 10 mg DAILY PRN [place] CONSTIPATION; Start 10/27/16 at 14 :00 Pantoprazole 40 mg 40 mg DAILY@06 IV Last administered on 10/29/16 05:14; Admin Dose 40 MG; Start 10/28/16 at 06:00 Sodium Chloride 1,000 ml @ 125 mls/hr Q8H IV Last administered on 10/29/16 08 :56; Admin Dose 125 MLS/HR; Start 10/27/16 at 14:00 Piperacillin Sod/ Tazobactam Sod (Zosyn 3.375gm/ 100 ml (Pmx)) 100 ml @ 200 mls /hr Q8 IVPB Last administered on 10/29/16t 05:14; Admin Dose 200 MLS/HR; Start 10/27/16 at 14:00 Indomethacin (Indocin Supp) 100 mg ONCE ONCE ND ; Start 10/29/16 at 12:00; Stop 10/29/16 at 12:01 ARI RAYO Oct 29, 2016 11:31
[2016-10-29] MEDS ORDERED: INDOMETHACIN 50 MG SUPP PR ONE (12:00)
[2016-10-29 12:35] LABS: INR 1.25; PROTIME 15.8 Sec (12.2-14.2); PT RATIO 1.2
[2016-10-29 12:36] LABS: PARTIAL THROMBOPLASTIN TIME 30.2 Sec (25.0-35.0)
--- NOTE | 2016-10-29 12:41 | RADRPT ---
PROCEDURE: XR Chest. CLINICAL INDICATION: Preoperative for ERCP. TECHNIQUE: Single frontal view. COMPARISON: None. FINDINGS: The lungs are clear. The heart size is normal. There is no pleural effusion. There is no pneumothorax. IMPRESSION: 1. Normal chest radiograph. RPTAT: QQ .Remy Falk MD, Date Time Electronically viewed and signed by .Remy Falk MD, on 10/29/2016 12:41 .R/
--- NOTE | 2016-10-29 16:00 | PN ---
DATE: 10/29/2016 SURGICAL FOLLOWUP SUBJECTIVE: The patient is markedly symptomatically improved. Her abdominal examination is benign. Her lipase has come down to 201. PLAN: ERCP today. Completion laparoscopic cholecystectomy tomorrow morning. I have discussed the procedure, outcomes, expectations, alternatives and risks in detail with the patient who has an exce llent understanding of the nature of her problem and agrees to the proposed plan of therapy as rejii madie. Dictated By: HORACIO SAUCEDO/BECCA Conf#: [id number] DID#: [id number]
[2016-10-29] MEDS ORDERED: IOHEXOL 300MG/ML 30 ML BTL ONE (16:42)
[2016-10-29] MEDS ORDERED: NEOSTIGMINE 3 MG/3 ML SYRINGE ONE (17:50)
[2016-10-29] MEDS ORDERED: SUCCINYLCHOLINE CHLORIDE 100 MG/5 ML SYG IV ONE (17:50)
[2016-10-29] MEDS ORDERED: ROCURONIUM 50 MG INJ ONE (17:50)
[2016-10-29] MEDS ORDERED: PROPOFOL 40 ML ONE (17:50)
[2016-10-29] MEDS ORDERED: GLYCOPYRROLATE 0.4 MG INJ ONE (17:50)
[2016-10-29] MEDS ORDERED: MEPERIDINE 25 MG INJ IV PRN (18:00)
[2016-10-29] MEDS ORDERED: ONDANSETRON 4 MG INJ IV PRN (18:00)
[2016-10-29] MEDS ORDERED: FENTAnyl 50 MCG/ML VIAL IV PRN (18:00)
[2016-10-29] MEDS ORDERED: HYDROmorphONE (0.2 MG/ML) 10ML SYG IV PRN ×3 (18:00)
[2016-10-29] MEDS ORDERED: DIPHENHYDRAMINE 50 MG INJ IV PRN (18:00)
--- NOTE | 2016-10-29 18:23 | RADRPT ---
PROCEDURE: Intraoperative imaging for ERCP with fluoroscopy. CLINICAL INDICATION: Right upper quadrant pain. Intraoperative. TECHNIQUE: 6 images of the right upper quadrant of the abdomen were obtained in the operating room with an image intensifier. No radiologist was in attendance. 45.4 seconds of fluoroscopy time was used. COMPARISON: MRCP dated 10/27/2016. FINDINGS: Images demonstrate the endoscope in position and contrast injected into the common bile duct. The c ommon bile duct is not dilated. The cystic duct is patent. A balloon sweep was made. The pancreat ic duct was not injected. IMPRESSION: 1. ERCP as described above. RPTAT: QQ .Remy Falk MD, MD Date Time Electronically viewed and signed by .Remy Falk MD, MD on 10/29/2016 18:22 .R/
--- NOTE | 2016-10-29 18:53 | GILP ---
DATE OF PROCEDURE: 10/29/2016 DATE: 10/29/2015 NAME OF PROCEDURE: Endoscopic retrograde cholangiopancreatography with sphincterotomy and stone rem oval. SURGEON: Twila Barrera MD. PREMEDICATION: General anesthesia by anesthesiologist. INSTRUMENT USED: Olympus side viewing panendoscope. TECHNIQUE: After informed consent, with the patient/relatives understanding the procedure, its indic ations, potential risks, and complications, including but not limited to: allergic reaction, bleedin g, perforation or infection, and after all pertinent questions were answered to the patient's satisf action, the patient/relatives signed witnessed informed consent. Following this, premedication was administered slowly IV push under careful cardiovascular and respi ratory monitoring with pulse oximetry, automatic blood pressure and threat monitoring analyst. Once the sedative effect was achieved, the patient was place in the prone position in the radiology special procedures suite; the side viewing panendoscope was introduced and advanced under visual con trol. Careful examination of the upper gastrointestinal tract, both on insertion as well as withdrawal of the instrument disclosed the following findings: ESOPHAGUS: The mucosa of the entire esophagus appears within normal limits. There is no evidence o f esophagitis, varices, neoplasm, or stricture. No Hiatal Hernia identified. STOMACH: Upon entrance to the stomach, air was insufflated, the gastric martines distended normally. The mucosa of the fundus, body, and antrum of the stomach was carefully examined both head-on and on retroflexion, and shows no abnormalities. There is no evidence of gastritis, ulcers, or neoplasm. PYLORUS: The pylorus appears patent and within normal limits, with no evidence of gastric outlet ob struction. DUODENUM: The duodenal mucosa was carefully examined in the duodenal bulb as well as the second por tion of the duodenum and appears unremarkable with no evidence of duodenitis, ulcer, or neoplasm. AMPULLA OF VATER: The ampulla was identified and appears essentially within normal limits. CANNULATION: It was cannulated without difficulty, selectively cannulating the biliary tree. The b iliary tree appears somewhat dilated to an estimated maximum diameter of 12 mm. Two small stones me asuring approximately 5 mm are noted and the distal common bile duct. A standard sphincterotomy was performed without difficulty and, following this, a 9 to 12 mm extraction balloon was utilized to s weep the biliary tree and obtain extraction of 2 stones. The patient tolerated the procedure well. IMPRESSION: 1. Choledocholithiasis with 2 small stones in the distal common bile duct measuring 5 mm each. 2. Post endoscopic retrograde sphincterotomy. 3. Post stone removal. PLAN: Laparoscopic cholecystectomy is planned for tomorrow. Further recommendations will depend on the patient's clinical course. Dictated By: TWILA BARRERA MS/BECCA Conf#: [id number] DID#: [id number] CC: ARI RAYO MD; TWILA BARRERA;*EndCC*
[2016-10-30] VITALS (21 sets, daily range): BP systolic 102–133; BP diastolic 56–72; PULSE 64–103; RESP 14–21
[2016-10-30] MEDS: morphine 2 MG INJ IV PRN ×4 (00:44→21:38)
[2016-10-30 05:08] LABS: ADD SCAN DIFF NO
[2016-10-30 05:12] LABS: BASOPHILS % 0.2 % (0.0-2.0); EOSINOPHILS # 0.1 10^3/ul (0.0-0.5); EOSINOPHILS % 0.7 % (0.0-7.0); HEMATOCRIT 32.2 % (37.0-47.0); LYMPHOCYTES # 2.1 10^3/ul (0.8-2.9); LYMPHOCYTES % 24.8 % (15.0-51.0); MEAN CORPUSCULAR HEMOGLOBIN 30.8 pg (29.0-33.0); MEAN CORPUSCULAR HGB CONC 34.2 g/dl (32.0-37.0); MEAN CORPUSCULAR VOLUME 90.2 fl (82.0-101.0); MEAN PLATELET VOLUME 10.1 fl (7.4-10.4); MONOCYTE # 0.7 10^3/ul (0.3-0.9); MONOCYTES % 8.2 % (0.0-11.0); NEUTROPHIL # 5.5 10^3/ul (1.6-7.5); NEUTROPHILS % 65.7 % (39.0-77.0); PLATELET COUNT 219 10^3/UL (140-415); RED BLOOD COUNT 3.57 10^6/ul (4.20-5.40); RED CELL DISTRIBUTION WIDTH 11.6 % (11.5-14.5); WHITE BLOOD COUNT 8.4 10^3/ul (4.8-10.8)
[2016-10-30] MEDS: PANTOPRAZOLE 40 MG INJ IV SCH (05:20)
[2016-10-30] MEDS: PIPER-TAZO 3.375 GM IV (PMX) 100 ML IVPB SCH ×3 (05:20→21:38)
[2016-10-30 05:27] LABS: ALBUMIN 3.3 g/dl (3.3-4.9); POTASSIUM 4.1 mmol/L (3.5-5.1)
[2016-10-30 05:29] LABS: BILIRUBIN,INDIRECT 0.3 mg/dl (0-1.1); BILIRUBIN,TOTAL 0.3 mg/dl (0.2-1.3); CREATININE 0.68 mg/dl (0.44-1.00)
[2016-10-30 05:30] LABS: ALBUMIN/GLOBULIN RATIO 1.26; PHOSPHORUS 3.9 mg/dl (2.5-4.9); TOTAL PROTEIN 5.9 g/dl (6.1-8.1)
[2016-10-30 05:31] LABS: CALCIUM 8.4 mg/dl (8.4-10.2); MAGNESIUM 1.9 mg/dl (1.7-2.5)
[2016-10-30] MEDS: SOD CHLORIDE 0.9% 1,000 ML IV SCH ×3 (06:17→21:07)
--- NOTE | 2016-10-30 09:46 | HPN ---
Date/Time of Note Date/Time of Note DATE: 10/30/16 TIME: 09:45 Interval H&P Admission Note Pt. seen H&P reviewed: Systems changes noted below Had ERCP yesterday, with removal of 2 CBD stones HORACIO MARQUEZ MD Oct 30, 2016 09:46
--- NOTE | 2016-10-30 09:52 | PN ---
Date/Time of Note Date/Time of Note DATE: 10/30/16 TIME: 09:42 Assessment/Plan VTE Prophylaxis VTE Prophylaxis Intervention: SCD's Lines/Catheters IV [facility] Peripheral IV Assessment/Plan Assessment/Plan [facility] 1. 21-year-old woman admitted four days ago with acute gallstone pancreatitis, choledocholithiasis and acute cholecystitis. Pancreatic enzymes are up again this morning, s/p ERCP. Pre-op chest x-ray is normal. Elevated INR may represent transient hepatic injury. * Scheduled for laparscopic cholecystectomy this morning * Patient is NPO * Continue IV fluids and antibiotics (day 4 Zosyn). * Mildly increased risk of operative and post-operative bleeding with elevated INR. * EKG pending 2. Family history of anesthesia reactions 3. Prophylaxis. Protonix for GI prophylaxis. SCDs to lower extremity for DVT prophylaxis. 4. DISPOSITION: Dr Barrera and Dr Stevens following. Surgery this morning. Patient lives alone, and anticipates discharge home. Lencho Rowan MD PhD [phone] Subjective 24 Hr Interval Summary Free Text/Dictation Feeling much better, with no pain now. Ate well yesterday, and not particularly hungry today. Ready for surgery. No visitors seen this morning. Exam/Review of Systems Vital Signs Vitals Vital Signs Date Time Temp Pulse Resp B/P Pulse Ox O2 Delivery O2 Flow Rate FiO2 10/30/16 08:05 99.0 65 16 102/56 98 10/29/16 18:47 Room Air Intake and Output 10/29/16 10/29/16 10/30/16 15:00 23:00 07:00 Intake Total 100 ml 1000 ml 1580 ml Balance 100 ml 1000 ml 1580 ml Exam Constitutional: alert, mildly anxious, breathing comfortably on room air Respiratory: clear to auscultation, normal air movement Cardiovascular: nl pulses, regular rate and rhythm Gastrointestinal: Mild RUQ tenderness, but with no rebound or guarding. Normal bowel sounds. Musculoskeletal: nl extremities to inspection Extremities: normal pulses, with no edema, clubbing or cyanosis Neurological: SUPERVISOR PUBLICATIONS II-XII intact, nl mental status, nl speech, nl strength. Normal gait. Results Result Diagram: 10/30/16 0445 10/30/16 0445 Results 24 hrs Laboratory Tests Test 10/29/16 12:06 10/30/16 04:20 10/30/16 04:45 Activated Partial Thromboplast Time 30.2 INR International Normalized Ratio 1.25 Prothrombin Time 15.8 H Prothrombin Time Ratio 1.2 Amylase Level 434 #H Alanine Aminotransferase (ALT/SGPT) 183 H Albumin 3.3 Albumin/Globulin Ratio 1.26 Alkaline Phosphatase 72 Anion Gap 14 Aspartate Amino Transf (AST/SGOT) 176 H Basophils # 0.0 Basophils % 0.2 Blood Urea Nitrogen 9 Calcium Level 8.4 Carbon Dioxide Level 25 Chloride Level 108 Creatinine 0.68 Direct Bilirubin 0.00 Eosinophils # 0.1 Eosinophils % 0.7 Globulin 2.60 Glucose Level 96 Hematocrit 32.2 L Hemoglobin 11.0 L Indirect Bilirubin 0.3 Lipase 2907 H Lymphocytes # 2.1 Lymphocytes % 24.8 Magnesium Level 1.9 Mean Corpuscular Hemoglobin 30.8 Mean Corpuscular Hemoglobin Concent 34.2 Mean Corpuscular Volume 90.2 Mean Platelet Volume 10.1 Monocytes # 0.7 Monocytes % 8.2 Neutrophils # 5.5 Neutrophils % 65.7 Nucleated Red Blood Cells # 0.0 Nucleated Red Blood Cells % 0.0 Phosphorus Level 3.9 Platelet Count 219 # Potassium Level 4.1 Red Blood Count 3.57 L Red Cell Distribution Width 11.6 Sodium Level 143 Total Bilirubin 0.3 Total Protein 5.9 L White Blood Count 8.4 # Medications Medications Current Medications Ondansetron HCl (Zofran Inj) 4 mg Q6H PRN IV NAUSEA AND/OR VOMITING Last administered on 10/27/16 17:26; Admin Dose 4 MG; Start 10/27/16 at 14:00 Oxycodone/ Acetaminophen (Percocet (5/ 325)) 1 tab Q6H PRN PO PAIN LEVEL 4-6; Start 10/27/16 at 14:00 Oxycodone/ Acetaminophen (Percocet (5/ 325)) 2 tab Q6H PRN PO PAIN LEVEL 7-10 Last administered on 10/27/16 19:42; Admin Dose 2 TAB; Start 10/27/16 at 14:00 Morphine Sulfate (morphine) 2 mg Q4H PRN IV PAIN LEVEL 7-10 Last administered on 10/30/16 04:46; Admin Dose 2 MG; Start 10/27/16 at 14:00 Docusate Sodium (Colace) 100 mg Q12H PRN PO CONSTIPATION; Start 10/27/16 at 14: 00 Magnesium Hydroxide (Milk Of Mag) 30 ml DAILY PRN PO CONSTIPATION; Start at 14:00 Bisacodyl (Dulcolax Supp) 10 mg DAILY PRN [place] CONSTIPATION; Start 10/27/16 at 14 :00 Pantoprazole 40 mg 40 mg DAILY@06 IV Last administered on 10/30/16 05:20; Admin Dose 40 MG; Start 10/28/16 at 06:00 Sodium Chloride 1,000 ml @ 125 mls/hr Q8H IV Last administered on 10/30/16 06 :17; Admin Dose 125 MLS/HR; Start 10/27/16 at 14:00 Piperacillin Sod/ Tazobactam Sod (Zosyn 3.375gm/ 100 ml (Pmx)) 100 ml @ 200 mls /hr Q8 IVPB Last administered on 10/30/16 05:20; Admin Dose 200 MLS/HR; Start 10/27/16 at 14:00 MATTHEW ROWAN M.D. Oct 30, 2016 09:52
[2016-10-30] MEDS ORDERED: BUPIVACAINE 0.25%/EPI (SDV) 30 ML INJ ONE (10:14)
[2016-10-30] MEDS ORDERED: CEFAZOLIN 1 GM INJ ONE (10:18)
[2016-10-30] MEDS ORDERED: GLYCOPYRROLATE 0.4 MG INJ ONE (10:18)
[2016-10-30] MEDS ORDERED: ROCURONIUM 50 MG INJ ONE (10:18)
[2016-10-30] MEDS ORDERED: NEOSTIGMINE 3 MG/3 ML SYRINGE ONE (10:18)
[2016-10-30] MEDS ORDERED: PROPOFOL 20 ML ONE (10:18)
[2016-10-30] MEDS ORDERED: FENTAnyl 50 MCG/ML VIAL ONE (10:19)
[2016-10-30] MEDS ORDERED: MIDAZOLAM 1 MG/ML 2 ML INJ ONE (10:19)
[2016-10-30] MEDS ORDERED: DIPHENHYDRAMINE 50 MG INJ IV PRN (10:30)
[2016-10-30] MEDS ORDERED: MEPERIDINE 25 MG INJ IV PRN (10:30)
[2016-10-30] MEDS ORDERED: ONDANSETRON 4 MG INJ IV PRN ×2 (10:30→12:00)
[2016-10-30] MEDS ORDERED: HYDROmorphONE (0.2 MG/ML) 10ML SYG IV PRN ×2 (10:30)
[2016-10-30] MEDS ORDERED: morphine (1 MG/ML) 10ML SYRINGE IV PRN ×3 (10:30)
[2016-10-30] MEDS ORDERED: DEXAMETHASONE 4 MG/ML 1 ML INJ ONE (10:54)
[2016-10-30] MEDS ORDERED: KETOROLAC 30 MG INJ ONE (10:54)
[2016-10-30] MEDS ORDERED: METOCLOPRAMIDE 10 MG INJ ONE (10:54)
[2016-10-30] MEDS ORDERED: ONDANSETRON 4 MG INJ ONE (10:54)
[2016-10-30] MEDS ORDERED: ROPIVACAINE 0.2% 20 ML VIAL ONE (11:04)
[2016-10-30] MEDS ORDERED: morphine 2 MG INJ IV PRN (12:00)
[2016-10-30] MEDS ORDERED: OXYCODONE/ACETAMINOPHEN (5/325) TAB PO PRN ×2 (12:00)
[2016-10-30] MEDS: HYDROmorphONE (0.2 MG/ML) 10ML SYG IV PRN ×2 (12:05→12:18)
--- NOTE | 2016-10-30 12:13 | OPR ---
DATE OF OPERATION: 10/30/2016 PREOPERATIVE DIAGNOSIS: Biliary pancreatitis and choledocholithiasis resolved, and acute cholecystitis. POSTOPERATIVE DIAGNOSIS: Biliary pancreatitis and choledocholithiasis resolved , and acute cholecystitis. OPERATION PERFORMED: Laparoscopic cholecystectomy. SURGEON: Horacio Stevens MD ANESTHESIA: General. OPERATIVE REPORT: After satisfactory general anesthesia was achieved, the abdomen was prepped and draped in the usual fashion. The abdomen was insufflated with carbon dioxide through an umbilical Veress needle to 15 mmHg pressure. The Veress needle was removed and the umbilical incision extended to 5 mm, through which a 5 mm trocar was placed. A 5 mm 0-degree lens was placed. Laparoscopy showed a chronically inflamed, markedly distended gallbladder. Under direct visualization, a 12 mm epigastric trocar was placed as well as two 5 mm right lateral abdominal trocars. The dome of the gallbladder was grasped and retracted superiorly. Wilfrid's pouch was retracted inferiorly. Peritoneal attachments to the gallbladder were triply hemoclipped and divided as was the cystic artery. The cystic duct was markedly dilated and dissected between the gallbladder and the well visualized common duct. The cystic duct was divided high at the junction of the gallbladder and the cystic duct with a laparoscopic linear cutter. The gallbladder was then dissected from below using electrocautery dissection and placed intact into an EndoCatch, removed via the 12 mm port site. Total hemostasis of the liver bed was achieved with electrocautery. The irrigant now returned clear. The epigastric incision was closed with the assistance of a laparoscopic closure device with 2 sutures of #1 Vicryl. The abdomen was then desufflated and the trocars were removed. The skin punctures were infiltrated with 30 mL of 0.25% Marcaine with epinephrine and closed with thomas. Operative blood loss approximately 60 mL. Sponge and needle counts were reported as correct x2. The patient tolerated the procedure well and without incident or complication. Dictated By: HORACIO SAUCEDO/BECCA Conf#: [id number] DID#: [id number] MTDD
[2016-10-30] MEDS ORDERED: VITAMIN A & D 5 GM OINT PACKET TOP ONE (17:34)
[2016-10-31] MEDS: morphine 2 MG INJ IV PRN ×5 (01:45→21:37)
[2016-10-31 05:05] LABS: ADD SCAN DIFF NO
[2016-10-31] MEDS: MAGNESIUM HYDROXIDE 30ML CUP PO PRN ×2 (05:11→07:06)
[2016-10-31] MEDS: PANTOPRAZOLE 40 MG INJ IV SCH (05:11)
[2016-10-31 05:12] LABS: BASOPHILS % 0.1 % (0.0-2.0); EOSINOPHILS % 0.3 % (0.0-7.0); HEMATOCRIT 23.8 % (37.0-47.0); HEMOGLOBIN 8.1 g/dl (12.0-16.0); LYMPHOCYTES # 2.1 10^3/ul (0.8-2.9); LYMPHOCYTES % 27.2 % (15.0-51.0); MEAN CORPUSCULAR VOLUME 91.2 fl (82.0-101.0); MEAN PLATELET VOLUME 10.3 fl (7.4-10.4); MONOCYTE # 0.5 10^3/ul (0.3-0.9); MONOCYTES % 6.9 % (0.0-11.0); NEUTROPHIL # 5.1 10^3/ul (1.6-7.5); NEUTROPHILS % 65.2 % (39.0-77.0); PLATELET COUNT 173 10^3/UL (140-415); RED BLOOD COUNT 2.61 10^6/ul (4.20-5.40); RED CELL DISTRIBUTION WIDTH 11.8 % (11.5-14.5); WHITE BLOOD COUNT 7.8 10^3/ul (4.8-10.8)
[2016-10-31] MEDS: SOD CHLORIDE 0.9% 1,000 ML IV SCH ×3 (05:12→21:29)
[2016-10-31] MEDS: PIPER-TAZO 3.375 GM IV (PMX) 100 ML IVPB SCH ×3 (05:31→21:29)
[2016-10-31 05:44] LABS: ALBUMIN 3.1 g/dl (3.3-4.9)
[2016-10-31 05:45] LABS: POTASSIUM 3.5 mmol/L (3.5-5.1)
[2016-10-31 05:47] LABS: BILIRUBIN,INDIRECT 0.2 mg/dl (0-1.1); BILIRUBIN,TOTAL 0.2 mg/dl (0.2-1.3); CREATININE 0.62 mg/dl (0.44-1.00)
[2016-10-31 05:48] LABS: ALBUMIN/GLOBULIN RATIO 1.47; CALCIUM 8.4 mg/dl (8.4-10.2); TOTAL PROTEIN 5.2 g/dl (6.1-8.1)
[2016-10-31] MEDS: ONDANSETRON 4 MG INJ IV PRN (08:03)
[2016-10-31] MEDS ORDERED: HYDROmorphONE 1 MG/ML SYG IV STA (08:27)
[2016-10-31] MEDS ORDERED: HYDROmorphONE 2 MG TAB PO PRN (08:30)
[2016-10-31 08:43] VITALS: BP 128/70; RESP 16
[2016-10-31 10:19] LABS: ADD SCAN DIFF NO
[2016-10-31 10:28] LABS: BASOPHILS % 0.1 % (0.0-2.0); EOSINOPHILS % 0.1 % (0.0-7.0); HEMOGLOBIN 8.1 g/dl (12.0-16.0); LYMPHOCYTES # 1.2 10^3/ul (0.8-2.9); LYMPHOCYTES % 15.5 % (15.0-51.0); MEAN CORPUSCULAR HGB CONC 35.2 g/dl (32.0-37.0); MEAN CORPUSCULAR VOLUME 90.9 fl (82.0-101.0); MEAN PLATELET VOLUME 9.8 fl (7.4-10.4); MONOCYTE # 0.5 10^3/ul (0.3-0.9); NEUTROPHIL # 5.8 10^3/ul (1.6-7.5); NEUTROPHILS % 77.9 % (39.0-77.0); PLATELET COUNT 162 10^3/UL (140-415); RED BLOOD COUNT 2.53 10^6/ul (4.20-5.40); RED CELL DISTRIBUTION WIDTH 11.8 % (11.5-14.5); WHITE BLOOD COUNT 7.5 10^3/ul (4.8-10.8)
--- NOTE | 2016-10-31 10:50 | PN ---
DATE: 10/31/2016 SURGERY PROGRESS NOTE SUBJECTIVE: Postoperative day #1: The patient had a very smooth and uneventful laparoscopic cholec ystectomy yesterday; however, this morning her hematocrit has dropped down to 23.8 from 32.2 preoper atively. Furthermore, she did notice some bleeding through the epigastric incision. OBJECTIVE: VITAL SIGNS: Stable. ABDOMEN: Soft and nontender without ecchymoses. LABORATORY DATA: Her white blood cell count is 7800. Bilirubin is 0.2. AST has come down to 62, A LT down to 138, alkaline phosphatase down to 51. Repeat lipase is pending. IMPRESSION: Postoperative anemia. PLAN: Stat repeat H and H, continue monitoring and observation, and repeat CBC in a.m. Dictated By: HORACIO SAUCEDO/BECCA Conf#: [id number] DID#: [id number]
--- NOTE | 2016-10-31 15:18 | PN ---
Date/Time of Note Date/Time of Note DATE: 10/31/16 TIME: 15:11 Assessment/Plan VTE Prophylaxis VTE Prophylaxis Intervention: SCD's Lines/Catheters IV C[facility]ter Type (from [facility]): Peripheral IV Urinary Cath still in place: No Assessment/Plan Assessment/Plan Assessment : * Cholelithiasis/post cholecystectomy 10/30/2016 * Acute drop hemoglobin hematocrit/ abdominal pain/blood exiting incision * Intra-abdominal bleeding * Choledocholithiasis/post ERCP and stone removal 10/29/2016 * Anemia Plan: * Monitor H&H, transfuse as necessary * Pain control * Surgical follow-up Further recommendations depend on clinical course Subjective 24 Hr Interval Summary Free Text/Dictation Course reviewed with nursing staff Patient underwent laparoscopic cholecystectomy yesterday She has developed significant abdominal pain She also has developed acute anemia There is an episode of bleeding through the incision yesterday No recurrence of bleeding through incision Patient uncomfortable with abdominal pain and abdominal distention She understands the nature of the problem Exam/Review of Systems Vital Signs Vitals Vital Signs Date Time Temp Pulse Resp B/P Pulse Ox O2 Delivery O2 Flow Rate FiO2 10/31/16 08:43 97.9 93 16 128/70 97 10/30/16 14:30 Room Air Intake and Output 10/30/16 10/30/16 10/31/16 15:00 23:00 07:00 Intake Total 800 ml 2100 ml 1720 ml Output Total 60 ml 1000 ml Balance 740 ml 1100 ml 1720 ml Exam Constitutional: alert, distress (Mild), oriented, well developed Psych: anxiety, nl mood/affect, no complaints Head: atraumatic, normocephalic Eyes: EOMI, PERRL, nl conjunctiva, nl lids, nl sclera ENMT: nl external ears & nose, nl lips & teeth, nl nasal mucosa & septum Neck: non-tender, supple Respiratory: clear to auscultation, normal air movement Cardiovascular: nl pulses, regular rate and rhythm Gastrointestinal: bowel sounds (Decrease), distended, nl liver, spleen, non- tender, other (Dressings clean at this time), rebound or guarding, tender ( Diffusely), No hepatomegaly, No mass, No splenomegaly Musculoskeletal: nl extremities to inspection Extremities: normal pulses Skin: nl turgor, No rash or lesions Lymph: nl lymph nodes Results Result Diagram: 10/31/16 1005 10/31/16 0433 Results 24 hrs Laboratory Tests Test 10/31/16 04:33 10/31/16 10:05 Alanine Aminotransferase (ALT/SGPT) 138 H Albumin 3.1 L Albumin/Globulin Ratio 1.47 Alkaline Phosphatase 51 Anion Gap 15 Aspartate Amino Transf (AST/SGOT) 62 H Basophils # 0.0 0.0 Basophils % 0.1 0.1 Blood Urea Nitrogen 9 Calcium Level 8.4 Carbon Dioxide Level 23 Chloride Level 107 Creatinine 0.62 Direct Bilirubin 0.00 Eosinophils # 0.0 0.0 Eosinophils % 0.3 0.1 Globulin 2.10 Glucose Level 102 Hematocrit 23.8 #L 23.0 L Hemoglobin 8.1 #L 8.1 L Indirect Bilirubin 0.2 Lymphocytes # 2.1 1.2 Lymphocytes % 27.2 15.5 Mean Corpuscular Hemoglobin 31.0 32.0 Mean Corpuscular Hemoglobin Concent 34.0 35.2 Mean Corpuscular Volume 91.2 90.9 Mean Platelet Volume 10.3 9.8 Monocytes # 0.5 0.5 Monocytes % 6.9 6.0 Neutrophils # 5.1 5.8 Neutrophils % 65.2 77.9 H Nucleated Red Blood Cells # 0.0 0.0 Nucleated Red Blood Cells % 0.0 0.0 Platelet Count 173 # 162 Potassium Level 3.5 Red Blood Count 2.61 #L 2.53 L Red Cell Distribution Width 11.8 11.8 Sodium Level 141 Total Bilirubin 0.2 Total Protein 5.2 L White Blood Count 7.8 7.5 Medications Medications Current Medications Ondansetron HCl (Zofran Inj) 4 mg Q6H PRN IV NAUSEA AND/OR VOMITING Last administered on 10/31/16 08:03; Admin Dose 4 MG; Start 10/27/16 at 14:00 Morphine Sulfate (morphine) 2 mg Q4H PRN IV PAIN LEVEL 7-10 Last administered on 10/31/16 12:04; Admin Dose 2 MG; Start 10/27/16 at 14:00 Docusate Sodium (Colace) 100 mg Q12H PRN PO CONSTIPATION Last administered on 21:07; Admin Dose 100 MG; Start 10/27/16 at 14:00 Magnesium Hydroxide (Milk Of Mag) 30 ml DAILY PRN PO CONSTIPATION Last administered on 10/31/16 07:06; Admin Dose 30 ML; Start 10/27/16 at 14:00 Bisacodyl (Dulcolax Supp) 10 mg DAILY PRN [place] CONSTIPATION; Start 10/27/16 at 14 :00 Pantoprazole 40 mg 40 mg DAILY@06 IV Last administered on 10/31/16 05:11; Admin Dose 40 MG; Start 10/28/16 at 06:00 Sodium Chloride 1,000 ml @ 125 mls/hr Q8H IV Last administered on 10/31/16 05 :12; Admin Dose 125 MLS/HR; Start 10/27/16 at 14:00 Piperacillin Sod/ Tazobactam Sod (Zosyn 3.375gm/ 100 ml (Pmx)) 100 ml @ 200 mls /hr Q8 IVPB Last administered on 10/31/16 14:17; Admin Dose 200 MLS/HR; Start 10/27/16 at 14:00 Ondansetron HCl (Zofran Inj) 4 mg Q6H PRN IV NAUSEA; Start 10/30/16 at 12:00 Simethicone (Mylicon) 160 mg Q4H PRN PO DISTENSION/GAS/BLOATING Last administered on 10/30/16 21:07; Admin Dose 160 MG; Start 10/30/16 at 20:40 Hydromorphone HCl (Dilaudid) 1 mg Q2H PRN PO PAIN LEVEL 8-10; Start 10/31/16 at 08:30 TWILA LO MD Oct 31, 2016 15:18
[2016-10-31] MEDS: KETOROLAC 15 MG INJ IV PRN ×2 (17:22→23:49)
[2016-10-31 20:06] VITALS: BP 122/62; RESP 18
--- NOTE | 2016-10-31 21:36 | RADRPT ---
PROCEDURE: XR Chest. CLINICAL INDICATION: Pulmonary hemorrhage. The back sputum.. TECHNIQUE: PA and lateral chest x-ray. COMPARISON: 10/29/2016 FINDINGS: The cardiomediastinal silhouette is unremarkable. The lungs are clear. No focal opacification is s een. There is no pleural effusion or pneumothorax. The osseous structures are unremarkable. IMPRESSION: No active disease. RPTAT: HMVK .August Sol MD, MD Date Time Electronically viewed and signed by .August Sol MD, MD on 10/31/2016 21:36 .K/
--- NOTE | 2016-10-31 23:39 | PN ---
Date/Time of Note Date/Time of Note DATE: 10/31/16 TIME: 23:36 Assessment/Plan VTE Prophylaxis VTE Prophylaxis Intervention: SCD's Lines/Catheters IV C[facility]ter Type (from [facility]): Peripheral IV Urinary Cath still in place: No Assessment/Plan Assessment/Plan [facility] 1. 21-year-old woman s/p laparoscopic cholecystectomy yesterday, admitted four days ago with acute gallstone pancreatitis, choledocholithiasis and acute cholecystitis. The AST and ALT declined today compared to yesterday. Hct dropped from 32% before surgery to 23% now. She had trujillo phlegm through the afternoon, though no compromise of her respiratory status. Lung exam was reassuringly normal, and a PA/lateral CXR showed no patchy infiltrates to suggest an alveolar hemorrhage problem. * Patient is on a clear liquid diet, with continued IV fluids and antibiotics ( day 5 Zosyn). * Mildly increased risk of operative and post-operative bleeding with elevated INR, with serial H&H anticipated * PA/lateral CXR as noted above. * Will repeat CT scan tomorrow if Hgb is lower. 2. Family history of anesthesia reactions 3. Prophylaxis. Protonix for GI prophylaxis. SCDs to lower extremity for DVT prophylaxis. 4. DISPOSITION: Dr Barrera and Dr Stevens following. Anticipates discharge home. Lencho Rowan MD PhD [phone] Subjective 24 Hr Interval Summary Free Text/Dictation Complaining today of significant pain in the RUQ, unrelieved by morphine 2mg IV. She mentioned having dark-colored phlegm she is coughing up. Concern about possible nausea is keeping her from eating or taking oral pain medicine. No visitors while I was there. Exam/Review of Systems Vital Signs Vitals Vital Signs Date Time Temp Pulse Resp B/P Pulse Ox O2 Delivery O2 Flow Rate FiO2 10/31/16 20:06 99.0 75 18 122/62 98 10/30/16 14:30 Room Air Intake and Output 10/30/16 10/30/16 10/31/16 15:00 23:00 07:00 Intake Total 800 ml 2100 ml 1720 ml Output Total 60 ml 1000 ml Balance 740 ml 1100 ml 1720 ml Exam Constitutional: Mildly anxious and uncomfortable, but breathing comfortably on room air Respiratory: clear to auscultation, normal air movement Cardiovascular: nl pulses, regular rate and rhythm Gastrointestinal: Mild RUQ tenderness, with no rebound or guarding. Normal bowel sounds. Musculoskeletal: nl extremities to inspection Extremities: normal pulses, with no edema, clubbing or cyanosis Neurological: UX ENGINEER II-XII intact, nl mental status, nl speech, nl strength. Results Result Diagram: 10/31/16 1005 10/31/16 0433 Results 24 hrs Laboratory Tests Test 10/31/16 04:33 10/31/16 10:05 Alanine Aminotransferase (ALT/SGPT) 138 H Albumin 3.1 L Albumin/Globulin Ratio 1.47 Alkaline Phosphatase 51 Anion Gap 15 Aspartate Amino Transf (AST/SGOT) 62 H Basophils # 0.0 0.0 Basophils % 0.1 0.1 Blood Urea Nitrogen 9 Calcium Level 8.4 Carbon Dioxide Level 23 Chloride Level 107 Creatinine 0.62 Direct Bilirubin 0.00 Eosinophils # 0.0 0.0 Eosinophils % 0.3 0.1 Globulin 2.10 Glucose Level 102 Hematocrit 23.8 #L 23.0 L Hemoglobin 8.1 #L 8.1 L Indirect Bilirubin 0.2 Lymphocytes # 2.1 1.2 Lymphocytes % 27.2 15.5 Mean Corpuscular Hemoglobin 31.0 32.0 Mean Corpuscular Hemoglobin Concent 34.0 35.2 Mean Corpuscular Volume 91.2 90.9 Mean Platelet Volume 10.3 9.8 Monocytes # 0.5 0.5 Monocytes % 6.9 6.0 Neutrophils # 5.1 5.8 Neutrophils % 65.2 77.9 H Nucleated Red Blood Cells # 0.0 0.0 Nucleated Red Blood Cells % 0.0 0.0 Platelet Count 173 # 162 Potassium Level 3.5 Red Blood Count 2.61 #L 2.53 L Red Cell Distribution Width 11.8 11.8 Sodium Level 141 Total Bilirubin 0.2 Total Protein 5.2 L White Blood Count 7.8 7.5 Medications Medications Current Medications Morphine Sulfate (morphine) 2 mg Q4H PRN IV PAIN LEVEL 7-10 Last administered on 10/31/16 21:37; Admin Dose 2 MG; Start 10/27/16 at 14:00 Docusate Sodium (Colace) 100 mg Q12H PRN PO CONSTIPATION Last administered on 21:07; Admin Dose 100 MG; Start 10/27/16 at 14:00 Magnesium Hydroxide (Milk Of Mag) 30 ml DAILY PRN PO CONSTIPATION Last administered on 10/31/16 07:06; Admin Dose 30 ML; Start 10/27/16 at 14:00 Bisacodyl (Dulcolax Supp) 10 mg DAILY PRN [place] CONSTIPATION; Start 10/27/16 at 14 :00 Pantoprazole 40 mg 40 mg DAILY@06 IV Last administered on 10/31/16 05:11; Admin Dose 40 MG; Start 10/28/16 at 06:00 Sodium Chloride 1,000 ml @ 125 mls/hr Q8H IV Last administered on 10/31/16 21 :29; Admin Dose 125 MLS/HR; Start 10/27/16 at 14:00 Piperacillin Sod/ Tazobactam Sod (Zosyn 3.375gm/ 100 ml (Pmx)) 100 ml @ 200 mls /hr Q8 IVPB Last administered on 10/31/16 21:29; Admin Dose 200 MLS/HR; Start 10/27/16 at 14:00 Ondansetron HCl (Zofran Inj) 4 mg Q6H PRN IV NAUSEA; Start 10/30/16 at 12:00 Simethicone (Mylicon) 160 mg Q4H PRN PO DISTENSION/GAS/BLOATING Last administered on 10/30/16 21:07; Admin Dose 160 MG; Start 10/30/16 at 20:40 Hydromorphone HCl (Dilaudid) 1 mg Q2H PRN PO PAIN LEVEL 8-10; Start 10/31/16 at 08:30 Ketorolac Tromethamine (Toradol) 15 mg Q6H PRN IV PAIN Last administered on 17:22; Admin Dose 15 MG; Start 10/31/16 at 17:00; Stop 11/03/16 at 16:59 MATTHEW ROWAN M.D. Oct 31, 2016 23:39
[2016-11-01] MEDS: PIPER-TAZO 3.375 GM IV (PMX) 100 ML IVPB SCH ×2 (05:06→14:00)
[2016-11-01] MEDS: PANTOPRAZOLE 40 MG INJ IV SCH (05:06)
[2016-11-01 05:55] LABS: ADD SCAN DIFF NO
[2016-11-01 05:58] LABS: BASOPHILS % 0.1 % (0.0-2.0); EOSINOPHILS # 0.1 10^3/ul (0.0-0.5); HEMATOCRIT 23.2 % (37.0-47.0); HEMOGLOBIN 7.8 g/dl (12.0-16.0); LYMPHOCYTES # 1.9 10^3/ul (0.8-2.9); LYMPHOCYTES % 26.1 % (15.0-51.0); MEAN CORPUSCULAR HEMOGLOBIN 31.1 pg (29.0-33.0); MEAN CORPUSCULAR HGB CONC 33.6 g/dl (32.0-37.0); MEAN CORPUSCULAR VOLUME 92.4 fl (82.0-101.0); MEAN PLATELET VOLUME 10.3 fl (7.4-10.4); MONOCYTE # 0.4 10^3/ul (0.3-0.9); MONOCYTES % 5.9 % (0.0-11.0); NEUTROPHIL # 4.9 10^3/ul (1.6-7.5); NEUTROPHILS % 66.6 % (39.0-77.0); PLATELET COUNT 169 10^3/UL (140-415); RED BLOOD COUNT 2.51 10^6/ul (4.20-5.40); WHITE BLOOD COUNT 7.3 10^3/ul (4.8-10.8)
[2016-11-01] MEDS: SOD CHLORIDE 0.9% 1,000 ML IV SCH (06:38)
[2016-11-01] MEDS: morphine 2 MG INJ IV PRN (07:55)
[2016-11-01 08:09] VITALS: BP 110/67; RESP 18
[2016-11-01] MEDS ORDERED: SOD CHLORIDE 0.9% 250 ML IV* ONE (10:08)
--- NOTE | 2016-11-01 10:51 | PN ---
Date/Time of Note Date/Time of Note DATE: 11/01/16 TIME: 10:42 Assessment/Plan VTE Prophylaxis VTE Prophylaxis Intervention: SCD's Lines/Catheters IV Catheter Type (from Nrs): Peripheral IV Urinary Cath still in place: No Assessment/Plan Assessment/Plan 21-year-old female: 1. Acute Gallstone pancreatitis, also with choledocholithiasis and acute cholecystitis. POD#2 Patient much better, pain control with po meds Hb 7.8 to 8.1 post op, no acute bleeding, will transfuse 1 unit prior to discharge today if OK with Gen surg D/c IVF and d/c home later today post pRBC if OK with Dr Stevens 2. Post op Anemia, Hb dropped to 8.1 post op and still 7.8 to 8.1, no acute bleeding post op noted, transfuse 1 unit pRBC today prior to discharge. Prophylaxis. Protonix for GI prophylaxis. SCDs to lower extremity for DVT prophylaxis. DISPOSITION: POD#2 post lap dena Subjective 24 Hr Interval Summary Free Text/Dictation Patient doing OK No complaints today with better pain control, tolerating po Exam/Review of Systems Vital Signs Vitals Vital Signs Date Time Temp Pulse Resp B/P Pulse Ox O2 Delivery O2 Flow Rate FiO2 11/01/16 08:09 97.8 68 18 110/67 99 10/30/16 14:30 Room Air Intake and Output 10/31/16 10/31/16 11/01/16 15:00 23:00 07:00 Intake Total 1340 ml 1580 ml Output Total 1800 ml Balance -460 ml 1580 ml Exam Constitutional: alert, oriented, well developed Respiratory: clear to auscultation, normal air movement Cardiovascular: nl pulses, regular rate and rhythm Gastrointestinal: soft, tender (at surgical site ) Musculoskeletal: nl extremities to inspection, nl gait and stance Extremities: normal pulses, other (no edema, clubbing or cyanosis ) Neurological: TEXTILE SCREEN MAKER II-XII intact, nl mental status, nl speech, nl strength Results Result Diagram: 11/01/16 0445 10/31/16 0433 Results 24 hrs Laboratory Tests Test 11/01/16 04:45 Basophils # 0.0 Basophils % 0.1 Eosinophils # 0.1 Eosinophils % 1.0 Hematocrit 23.2 L Hemoglobin 7.8 L Lipase 237 Lymphocytes # 1.9 Lymphocytes % 26.1 Mean Corpuscular Hemoglobin 31.1 Mean Corpuscular Hemoglobin Concent 33.6 Mean Corpuscular Volume 92.4 Mean Platelet Volume 10.3 Monocytes # 0.4 Monocytes % 5.9 Neutrophils # 4.9 Neutrophils % 66.6 Nucleated Red Blood Cells # 0.0 Nucleated Red Blood Cells % 0.0 Platelet Count 169 Red Blood Count 2.51 L Red Cell Distribution Width 12.0 White Blood Count 7.3 Medications Medications Current Medications Morphine Sulfate (morphine) 2 mg Q4H PRN IV PAIN LEVEL 7-10 Last administered on 11/01/16 07:55; Admin Dose 2 MG; Start 10/27/16 at 14:00 Docusate Sodium (Colace) 100 mg Q12H PRN PO CONSTIPATION Last administered on 21:07; Admin Dose 100 MG; Start 10/27/16 at 14:00 Magnesium Hydroxide (Milk Of Mag) 30 ml DAILY PRN PO CONSTIPATION Last administered on 10/31/16 07:06; Admin Dose 30 ML; Start 10/27/16 at 14:00 Bisacodyl (Dulcolax Supp) 10 mg DAILY PRN [place] CONSTIPATION; Start 10/27/16 at 14 :00 Pantoprazole 40 mg 40 mg DAILY@06 IV Last administered on 11/01/16 05:06; Admin Dose 40 MG; Start 10/28/16 at 06:00 Piperacillin Sod/ Tazobactam Sod (Zosyn 3.375gm/ 100 ml (Pmx)) 100 ml @ 200 mls /hr Q8 IVPB Last administered on 11/01/16 05:06; Admin Dose 200 MLS/HR; Start 10/27/16 at 14:00 Ondansetron HCl (Zofran Inj) 4 mg Q6H PRN IV NAUSEA; Start 10/30/16 at 12:00 Simethicone (Mylicon) 160 mg Q4H PRN PO DISTENSION/GAS/BLOATING Last administered on 10/30/16 21:07; Admin Dose 160 MG; Start 10/30/16 at 20:40 Hydromorphone HCl (Dilaudid) 1 mg Q2H PRN PO PAIN LEVEL 8-10; Start 10/31/16 at 08:30 Ketorolac Tromethamine (Toradol) 15 mg Q6H PRN IV PAIN Last administered on t 23:49; Admin Dose 15 MG; Start 10/31/16 at 17:00; Stop 11/03/16 at 16:59 ARI RAYO Nov 01, 2016 10:51
--- NOTE | 2016-11-01 10:52 | PDOCDIS ---
Discharge Instructions CONDITION Patient Condition: Stable HOME CARE INSTRUCTIONS: Diet Instructions: Low Fat /Cholesterol ACTIVITY: Activity Restrictions: Slowly Increase Activity Rest between Activity Avoid heavy lifting Bathing Restrictions: Shower FOLLOW UP/APPOINTMENTS Appointments Follow up with PCP in 1 week Follow up with Dr Stevens in 1 week ARI RAYO Nov 01, 2016 10:52
[2016-11-01] MEDS ORDERED: HYDR-906 PO (10:53)
[2016-11-01] MEDS: HYDROCODONE/APAP (5/325) TAB PO PRN ×2 (12:12→19:41)
--- NOTE | 2016-11-01 14:37 | PN ---
DATE: 11/01/2016 Postoperative day #2. The patient is afebrile and symptomatically improved. Her hematocrit is stab le at 23.2 without left shift. Her abdominal examination is benign. PLAN: The patient is cleared for discharge from a surgical point of view. I will see the patient i n office in 1 week for staple removal. Dictated By: HORACIO SAUCEDO/BECCA Conf#: [id number] DID#: [id number]
[2016-11-01 19:52] VITALS: BP 118/63; RESP 16
[2016-11-02] MEDS ORDERED: PANTOPRAZOLE (EC) 40 MG TAB PO SCH (06:00)
--- NOTE | 2016-11-02 17:51 | RADRPT ---
Vent Rate: 50 bpm RR Interval: 0 msec NE Interval: 122 msec QRS Duration: 90 msec QT Interval: 448 msec QTC Interval: 408 msec P-R-T [place]: 34 - 63 - 49 degrees Sinus bradycardia Otherwise normal ECG Electronically Signed By: Diaz Silvestre [id number]
--- NOTE | 2016-11-03 13:40 | DS ---
DATE OF ADMISSION: 10/27/2016 DATE OF DISCHARGE: 11/01/2016 ADMITTING PHYSICIAN: Dr. Pompa. DISCHARGING PHYSICIAN: Dr. Pompa. GENERAL SURGERY CONSULT ON THIS ADMISSION: Dr. Stevens GI CONSULT: Dr. Barrera. BRIEF HISTORY OF PRESENT ILLNESS: This is a 21-year-old female with not much of a medical history, who presented to the emergency department with acute onset of epigastric pain radiating to her back, worsening with some nausea and vomiting. HOSPITAL COURSE: The patient had a gallbladder ultrasound that showed a dilated common bile duct, a bdominal x-ray, ultrasound was unremarkable. Her laboratory data did confirm acute pancreatitis wit h a lipase level of 17,540. The patient was admitted to a medical/surgical bed with surgical consul t, gastroenterology consult and MRCP pending. HOSPITAL COURSE: The patient was placed n.p.o. on IV fluids and IV antibiotics for 48 hours, waitin g for her lipase to come down. It did normalize. MRCP was done. She had signs of choledocholithia sis and cholecystitis. She remained stable for the first 48 hours, subsequently had an ERCP done. After the ERCP, had a cholecystectomy done by Dr. Stevens. On postoperative day #1, she was noted t o have a low hemoglobin of 8.1 and on postoperative day #2, It was at 7.8. There was no outward ac [place] bleeding that could be seen. Therefore, she did receive 1 unit of packed red blood cells for th e postoperative anemia prior to discharge. She remained stable, was ambulating and tolerating p.o. She is to follow up with general surgery within 1 week and follow up with a primary care physician within 1 week. DISPOSITION: Discharge home. DISCHARGE CONDITION: Stable. DISCHARGE DIET: Regular diet. DISCHARGE ACTIVITY: Resume home activity. FOLLOWUP: The patient is to follow up with Dr. Stevens within 1 week and follow up with primary care physician within 1 week. DISCHARGE MEDICATIONS: 1. [place]ne 5/325 one tab p.o. q.6h. p.r.n. pain. DISCHARGE DIAGNOSES: 1. Acute gallstone pancreatitis, resolved. 2. Choledocholithiasis and cholelithiasis status post ERCP, resolved. 3. Acute cholecystitis status post cholecystectomy, laparoscopic. 4. Postop anemia with hemoglobin around 8.1. The patient did receive 1 unit of packed red blood cells prior to discharge. Dictated By: ARI FORTUNE/BECCA Conf#: [id number] DID#: [id number]
== END 2016-11-01 20:25 | disposition home or self-care (01) | DRG 417 ==
LOC: FTE 08:31 → MS1 10:42
PROVIDERS: ADMIT Internal Medicine; ATTEND Internal Medicine
PROC: 0FC98ZZ Extirpation of Matter from Common Bile Duct, Via Natural or Artificial Opening Endoscopic (ICD-10-PCS; 2016-10-29)
PROC: 30233N1 Transfusion of Nonautologous Red Blood Cells into Peripheral Vein, Percutaneous Approach (ICD-10-PCS; 2016-10-29)
PROC: 0FT44ZZ Resection of Gallbladder, Percutaneous Endoscopic Approach (ICD-10-PCS; principal; 2016-10-30 11:30)
DX: K80.62 Calculus of gallbladder and bile duct with acute cholecystitis without obstruction (principal); K85.10 Biliary acute pancreatitis without necrosis or infection; D62 Acute posthemorrhagic anemia
CPT/HCPCS: 36415; 36430; 71010; 71020; 74000; 74181; 74330; 76705; 80053; 80061; 81001; 81003; 82150; 83690; 83735; 84100; 85025; 85610; 85730; 86850; 86900; 86901; 86920; 88304; 93005; 96361; 96374; 96375; 96376; C9113; J0295; J0330; J0690; J1100; J1170; J1885; J2175; J2250; J2270; J2405; J2543; J2710; J2765; J2795; J3010; J7030; J7040; P9016; Q9967

== ENCOUNTER 2016-11-15 12:43 | Emergency (ER) | payer SELFPAY ==
[~2016-11-15 12:43] MED LIST: HYDR-906 PO
== END 2016-11-15 13:02 | disposition left against medical advice (07) ==
LOC: FTE 12:43 → E/R 13:02
DX: Z53.21 Procedure and treatment not carried out due to patient leaving prior to being seen by health care provider (principal)

== ENCOUNTER 2016-11-26 13:46 | Emergency (ER) | payer OTHER ==
[~2016-11-26] VITALS: Wt 69.0 kg
--- NOTE | 2016-11-26 14:39 | ERD ---
ER Documentation Chief Complaint Date/Time DATE: 11/26/16 TIME: 14:33 Chief Complaint SUTURE REMOVAL HPI 21-year-old female with a past medical history of choledocholithiasis status post laparoscopic cholecystectomy presents to the ED for staple removal of her surgery. Reports that her surgery was on 10/30/2016 and regionally went to her surgeon, Dr. Marquez for follow-up appointment but stated that they did not schedule an appointment. The office instructed patient to come to the ER to remove the thomas. Patient states that after she was thomas she will follow up with the surgeon, Dr. Marquez. Denies any fever, chills, abdominal pain, nausea, vomiting, diarrhea, constipation, chest pain, shortness of breath. ROS All systems reviewed and are negative except as per history of present illness. Medications Home Meds Active Scripts Hydrocodone/Acetaminophen ([place] 5-325 Tablet) 1 Each Tablet, 1 EACH PO Q6 Y for PAIN, #30 TAB Prov:ARI RAYO 11/01/16 Allergies Allergies: Coded Allergies: No Known Allergy (Unverified , 10/27/16) PMhx/Soc History of Surgery: No Anesthesia Reaction: No Hx Neurological Disorder: No Hx Respiratory Disorders: No Hx Cardiac Disorders: No Hx Psychiatric Problems: No Hx Miscellaneous Medical Probl: No Hx Alcohol Use: Yes Hx Substance Use: No Hx Tobacco Use: No Physical Exam Vitals Vital Signs Date Time Temp Pulse Resp B/P Pulse Ox O2 Delivery O2 Flow Rate FiO2 11/26/16 13:48 98.0 67 18 120/67 99 Physical Exam Const: [id number], well-nourished. In no acute distress. Head: Atraumatic, normocephalic Eyes: Normal Conjunctiva without injection. No purulent discharge. ENT: Normal external ear, nose, mouth. No drooling. No trismus. Neck: No cervical midline tenderness. Full range of motion. No meningismus. No cervical lymphadenopathy. No JVD. Resp: Clear to auscultation bilaterally. No wheezing, rhonchi, rales, or crackles. No accessory muscle use. No retractions. Cardio: Regular rate and rhythm. No murmurs, rubs or gallops. Abd: Soft, nontender non distended. Normal bowel sounds. No palpable masses. No rebound tenderness. No guarding. Negative McBurney's point. Negative psoas sign. Negative obturator sign. Skin: No petechiae or rashes. Several laparoscopic incisions noted on abdomen. 2.5 cm laparoscopic incision's superior to umbilicus with 5 thomas, two 1 centimeter laparoscopic incisions noted on the right mid and lower abdomen with 2 thomas each. 2 thomas noted in the umbilicus. No bleeding, purulent discharge, edema, erythema noted. Back: No midline tenderness. No CVA tenderness. Ext: No cyanosis, or edema. Neur: Awake and alert. Normal gait. Normal coordination. Psych: Normal Mood and Affect Procedures/MDM This is a 21-year-old female with a past history of choledocholithiasis status post laparoscopic cholecystectomy presents to the ED for staple removal. He shouldn't is afebrile and nontoxic-appearing. Patient has normal vital signs. A total of 11 thomas were noted on the laparoscopic scopic incision sites. He should give consent to remove the thomas here at the rapid assessment area. A staple remover was used to remove the thomas at this time. The thomas were removed without complications. No signs of cellulitis, deep space infection, postoperative infection, postoperative complication, UTI, pneumonia, DVT, pulmonary embolism, pyelonephritis, or other emergent conditions. Follow up with Dr. Marquez, general surgeon in 2 days. Instructed patient to return to the ED sooner for any worsening symptoms. Patient's questions were answered. Patient understood and agreed with discharge plan. Patient discharged stable. Departure Diagnosis: Primary Impression: Encounter for removal of thomas Condition: Stable Patient Instructions: Suture Removal, No Complication Referrals: HORACIO MARQUEZ MD [facility] YOU HAVE RECEIVED A MEDICAL SCREENING EXAM AND THE RESULTS INDICATE THAT YOU DO NOT HAVE A CONDITION THAT REQUIRES URGENT TREATMENT IN THE EMERGENCY DEPARTMENT. FURTHER EVALUATION AND TREATMENT OF YOUR CONDITION CAN WAIT UNTIL YOU ARE SEEN IN YOUR DOCTORS OFFICE WITHIN THE NEXT 1-2 DAYS. IT IS YOUR RESPONSIBILITY TO MAKE AN APPOINTMENT FOR FOLOW-UP CARE. IF YOU HAVE A PRIMARY DOCTOR --you should call your primary doctor and schedule an appointment IF YOU DO NOT HAVE A PRIMARY DOCTOR YOU CAN CALL OUR PHYSICIAN REFERRAL HOTLINE AT IF YOU CAN NOT AFFORD TO SEE A PHYSICIAN YOU CAN CHOSE FROM THE FOLLOWING [facility] [address] [facility] [address] [facility] [address] [facility] [address] [facility] [address] [facility]. [facility]. [address] [facility] [facility] YOU HAVE RECEIVED A MEDICAL SCREENING EXAM AND THE RESULTS INDICATE THAT YOU DO NOT HAVE A CONDITION THAT REQUIRES URGENT TREATMENT IN THE EMERGENCY DEPARTMENT. FURTHER EVALUATION AND TREATMENT OF YOUR CONDITION CAN WAIT UNTIL YOU ARE SEEN IN YOUR DOCTORS OFFICE WITHIN THE NEXT 1-2 DAYS. IT IS YOUR RESPONSIBILITY TO MAKE AN APPOINTMENT FOR FOLOW-UP CARE. IF YOU HAVE A PRIMARY DOCTOR --you should call your primary doctor and schedule and appointment IF YOU DO NOT HAVE A PRIMARY DOCTOR YOU CAN CALL OUR PHYSICIAN REFERRAL HOTLINE AT . IF YOU CAN NOT AFFORD TO SEE A PHYSICIAN YOU CAN CHOSE FROM THE FOLLOWING [facility] INSTITUTIONS: [facility] [address] [place] [address] [facility] [address] [place] [address] [facility] [address] [place] [address] [facility] URGENT C[facility]/SPECIALTIES Additional Instructions: FOLLOW UP WITH YOUR DR. MARQUEZ, YOUR SURGEON IN 2-3 DAYS.Return to this facility if you are not improving as expected. LOLY OROPEZA PA-C Nov 26, 2016 14:39
== END 2016-11-26 14:30 | disposition home or self-care (01) ==
LOC: E/R 13:46
DX: Z48.02 Encounter for removal of sutures (principal)
CPT/HCPCS: 99281